=== PATIENT | female | born 1970 | race African-American/Black ===

== ENCOUNTER → 2024-02-13 | Emergency (ER) | payer OTHER ==
[~2024-02-13] MED LIST: FAMOTIDINE 20 MG/2 ML VIAL IV ONE; KETOROLAC 30 MG/ML INJ ONE; NA CHLORIDE 0.9% 1,000 ML ONE; ONDANSETRON 4 MG/2 ML VIAL ONE
[2024-02-13 13:01] LABS: Absolute Eosinophils 1.1 K/uL (0-0.5); Absolute Lymphocytes (CBC) 0.8 K/uL (0.7-4.9); Absolute Monocytes 0.4 K/uL (0.1-1.3); Absolute Neutrophil 6.3 K/uL (1.8-8.0); Basophils % 0.3 % (0-1.3); Eosinophils % 12.7 % (0-4.4); Hematocrit 44.7 % (36.0-45.0); Hemoglobin 15.1 g/dL (12.0-15.0); Lymphocytes % 8.9 % (15.3-44.8); MCH 31.2 pg (27.0-35.0); MCHC 33.8 g/dL (32.0-36.0); MCV 92.3 fL (80-100); MPV 7.8 fL (7.6-11.3); Monocytes % 4.8 % (3.3-12.3); Neutrophils % 73.3 % (41.7-73.7); Nucleated Red Blood Cells % 0.1 % (0-0); Platelets 332 thou/uL (152-406); RBC Red Blood Cell Count 4.85 M/uL (3.86-4.86); Red Cell Distribution Width 14.4 % (12.1-15.2)
[2024-02-13 13:25] LABS: Albumin 3.6 g/dL (3.4-5.0); Anion Gap 11.7 mEq/L (5.0-15.0); Bilirubin Direct 0.3 mg/dL (0-0.2); Bilirubin Indirect, Calculated 1.3 mg/dL (0.2-0.8); Bilirubin Total 1.6 mg/dL (0.2-1.0); Globulin 3.5 g/dL (2.3-3.5); Potassium 3.7 mEq/L (3.5-5.1); Protein, Total 7.1 g/dL (6.4-8.2); Troponin High Sensitivity 7.1 pg/mL (<58.9)
[2024-02-13 13:30] LABS: Specific Gravity > 1.030 (1.005-1.030); Urine Bacteria None Seen /HPF (<20); Urine Bilirubin NEGATIVE (Negative); Urine Blood Negative (Negative); Urine Clarity Extremely Turbid (Clear); Urine Color Orange (Yellow); Urine Culture Reflex Order NOT NEEDED; Urine Glucose TRACE (Negative); Urine Ketones NEGATIVE (Negative); Urine Microscopic Reflex YN ORDER UMIC; Urine Mucus 4+ /HPF (None Seen); Urine Nitrite NEGATIVE (Negative); Urine Protein 1+ (Negative); Urine RBC <5 /HPF (None Seen); Urine Urobilinogen Normal (Normal); Urine WBC None Seen /HPF (<5)
--- NOTE | 2024-02-13 14:31 | RAD REPORT ---
EXAM DESCRIPTION: CT - Chest For Pe Angio - 02/13/2024 1:42 pm CLINICAL HISTORY: chest pain, abdominal pain COMPARISON: Chest For Pe Angio dated 01/24/2024 TECHNIQUE: Thin axial CT images of the chest were obtained following administration of 100 mL Isovue 370 IV contrast. Multiplanar reconstructions, and maximum intensity projection reconstructions were generated and reviewed. Exam utilizes a protocol for optimal evaluation of pulmonary arterial tree. All CT scans are performed using dose optimization technique as appropriate and may include automated exposure control or mA/KV adjustment according to patient size. FINDINGS: Pulmonary arteries are normal. No emboli or other suspicious finding. No acute or signific ant aorta findings. Patchy dependent medial basilar airspace opacities including scattered areas of dependent ground-glas s and tree-in-bud opacities. Wall thickening and opacification of the bronchial branches leading to t hese regions, may relate to secretions or mucous plugging. Trace effusion/thickening along the right major fissure. No pleural thickening or pleural effusion. No pneumothorax. Diffuse wall thickening circumferentially along the mid to distal esophagus and the gastroesophageal junction, may relate to infectious/inflammatory esophagitis or reflux. Incidentally noted few thyroid nodules largest at the lower pole inferiorly measuring 1.5 cm. Mildly prominent mediastinal and hilar lymph nodes seen probably reactive/inflammatory. No chest wall mass or abnormal axilliary lymphadenopathy. IMPRESSION: No evidence of acute central pulmonary emboli. Patchy dependent medial bibasilar airspace opacities concerning for pneumonitis, with bronchial wall thickening and secretions/ mucoid impaction along the leading bronchitis. Other airspace opacities se en elsewhere in the central lungs on the prior exam have since resolved. Circumferential wall thickening of the mid to distal esophagus suggesting infectious/inflammatory eso phagitis or reflux. This is stable. Few bilateral thyroid nodules, consider additional evaluation by dedicated thyroid ultrasound if not previously performed.
--- NOTE | 2024-02-13 14:35 | RAD REPORT ---
EXAM DESCRIPTION: RADChest Single View02/13/2024 1:26 pm CLINICAL HISTORY: CHEST PAIN COMPARISON: Chest Single View dated 01/24/2024 TECHNIQUE: Portable AP view of the chest. FINDINGS: Partial improvement of bibasilar patchy airspace opacities. No pneumothorax or effusion. The cardiomediastinal contours are unremarkable. IMPRESSION: Partial improvement of bibasilar patchy airspace opacities, may reflect pneumonia.
--- NOTE | 2024-02-13 14:51 | RAD REPORT ---
EXAM DESCRIPTION: CT - Abdomen Pelvis W Contrast - 02/13/2024 1:43 pm CLINICAL HISTORY: nausea/ vomiting COMPARISON: Chest For Pe Angio dated 01/24/2024; Chest For Pe Angio dated 02/13/2024 TECHNIQUE: Thin cut axial CT imaging of the abdomen and pelvis was performed following intravenous a dministration of 100 mL Isovue 370. Multiplanar reformats were generated and reviewed. All CT scans are performed using dose optimization technique as appropriate and may include automated exposure control or mA/KV adjustment according to patient size. FINDINGS: Lungs were better evaluated on accompanying CT angiogram chest of the same day. The liver, spleen, adrenal glands, and pancreas show no suspicious findings. Gallbladder was surgical ly removed. Symmetric renal function is seen with no hydronephrosis or suspicious renal mass. No dilated bowel loops or bowel wall thickening. No free air, free fluid or inflammatory stranding. N o hernia, mass or bulky lymphadenopathy. The urinary bladder is without significant finding. Retroverted uterus with heterogeneously enhancing fibroids throughout the myometrium, sparing the lef t lateral wall. No suspicious bony findings. IMPRESSION: No acute intra-abdominal process. Retroverted fibroid uterus. Lungs were better evaluated on accompanying CT angiogram chest of the same day.
--- NOTE | 2024-02-13 15:53 | ER ---
Nurse's Notes [facility] Name: Dari Calvillo Age: 53 yrs Sex: Female : 1970 Arrival Date: 02/13/2024 Time: 12:17 Bed 3 Private MD: Diagnosis: Nausea with vomiting, unspecified;Chest pain, unspecified Presentation: 02/12 12:23 Chief complaint: Patient states: N/V and mid-sternal chest pain, n/v started this ph morning, states that she vomited blood. Coronavirus screen: Vaccine status: Patient reports receiving the 1st dose of the Covid vaccine. Ebola Screen: No symptoms or risks identified at this time. Initial Sepsis Screen: Does the patient meet any 2 criteria? No. Patient's initial sepsis screen is negative. Does the patient have a suspected source of infection? No. Patient's initial sepsis screen is negative. Risk Assessment: Do you want to hurt yourself or someone else? Patient reports no desire to harm self or others. Onset of symptoms was February 13, 2024. 12:23 Method Of Arrival: Ambulatory ph 12:23 Acuity: HILDA 2 ph Triage Assessment: 12:27 General: Appears in no apparent distress. Behavior is calm, cooperative. Pain: ph Complains of pain in chest. GI: Reports nausea, vomiting. 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 - Social history:: Smoking status: Patient denies any tobacco usage or history of. Screenin:15 [facility] ED Fall Risk Assessment (Adult) History of falling in the last 3 months, ko1 including since admission No falls in past 3 months (0 pts). [facility] ED Fall Risk Assessment (Adult) History of falling in the last 3 months, including since admission No falls in past 3 months (0 pts) Confusion or Disorientation No (0 pts) Intoxicated or Sedated No (0 pts) Impaired Gait No (0 pts) Mobility Assist Device Used No (0 pt) Altered Elimination No (0 pt) Score/Fall Risk Level 0 - 2 = Low Risk Oriented to surroundings, Maintained a safe environment, Educated pt \T\ family on fall prevention, incl call for assistance when getting out of bed, Assessed \T\ reinforced patient's understanding of fall precautions, Provided non-skid footwear, Hourly rounding (assess needs \T\ fall precautionary measures) done, Used ambulatory aids as needed (educated on \T\ assisted with), Used gait belt as appropriate. Abuse screen: Denies threats or abuse. Denies injuries from another. Nutritional screening: No deficits noted. Tuberculosis screening: No symptoms or risk factors identified. Assessment: 13:08 General: Appears uncomfortable, Behavior is calm, cooperative, appropriate for age. ll1 Pain: Complains of pain in LUQ, mid chest Pain currently is 9 out of 10 on a pain scale. Quality of pain is described as aching. Neuro: Reports weakness. GI: Abdomen is round Bowel sounds present X 4 quads. Abd is soft Abdomen is tender to palpation in left upper quadrant Reports upper abdominal pain, nausea, vomiting. 14:05 Reassessment: No changes from previously documented assessment. Patient and/or family ll1 updated on plan of care and expected duration. Pain level reassessed. Patient is alert, oriented x 3, equal unlabored respirations, skin warm/dry/pink. 14:48 Reassessment: No changes from previously documented assessment. Patient and/or family ll1 updated on plan of care and expected duration. Pain level reassessed. Patient is alert, oriented x 3, equal unlabored respirations, skin warm/dry/pink. Vital Signs: 12:23 BP 138 / 96; Pulse 123; Resp 18; Temp 97.2; Pulse Ox 95% on R/A; Weight 100.7 kg; ph Height 6 ft. 3 in. ; Pain 9/10; 13:07 Pulse 112; Resp 18; Pulse Ox 94% on R/A; ll1 14:20 Pulse 104; Resp 18; Pulse Ox 95% on R/A; ll1 14:49 BP 132 / 97; Pulse 99; Resp 18; Pulse Ox 94% on R/A; ll1 15:29 BP 148 / 89; Pulse 97; Resp 18; Pulse Ox 94% on R/A; ll1 16:06 BP 158 / 93; Pulse 96; Resp 18; Pulse Ox 100% on R/A; ll1 12:23 Body Mass Index 27.75 (100.70 kg, 190.5 cm) ph 12:23 Pain Scale: Adult ph ED Course: 12:19 Patient arrived in ED. rg4 12:19 Jeromy Nair DO is Attending Physician. ms3 12:27 Triage completed. ph 12:27 Arm band placed on Patient placed in waiting room, Patient notified of wait time. ph 12:31 EKG completed in triage. Results shown to MD. ph 12:50 D-Dimer Sent. bc6 12:50 LFT's Sent. bc6 12:50 Lipase Sent. bc6 12:50 Basic Metabolic Panel Sent. bc6 12:50 CBC with Diff Sent. bc6 12:50 Troponin HS Sent. bc6 12:51 Inserted saline lock: 22 gauge in left forearm, using aseptic technique. Blood bc6 collected. 12:51 Initial lab(s) drawn, by me, sent to lab. EKG done, by ED staff, reviewed by Jeromy Nair DO. 12:52 Warm blanket given. bc6 12:57 Jesus Ac, RN is Primary Nurse. ll1 13:15 Patient has correct armband on for positive identification. Bed in low position. Call ko1 light in reach. Side rails up X 1. Provided Education on: na. Client placed on continuous cardiac and pulse oximetry monitoring. NIBP monitoring applied. clinical research monitor on. 13:15 No provider procedures requiring assistance completed. ko1 13:28 XRAY Chest (1 view) In Process Unspecified. EDMS 13:44 CT Chest For PE Angio In Process Unspecified. EDMS 13:44 CT Abd/Pelvis - IV Contrast Only In Process Unspecified. EDMS 15:53 Jeb Cortes DO is Referral Physician. ms3 16:07 IV discontinued, intact, bleeding controlled, No redness/swelling at site. Pressure ll1 dressing applied. Administered Medications: 13:07 Drug: Famotidine IVP 20 mg IVP once; dilute with 10 mL 0.9% NaCl; give over 2 minutes ll1 Route: IVP; Site: left forearm; 14:45 Follow up: Response: No adverse reaction ll1 13:07 Drug: TORadol - Ketorolac IVP 15 mg IVP once Route: IVP; Site: left forearm; ll1 14:45 Follow up: Response: No adverse reaction; Pain is decreased ll1 13:07 Drug: Ondansetron IVP 4 mg IVP once; over 2 minutes Route: IVP; Site: left forearm; ll1 14:45 Follow up: Response: No adverse reaction ll1 14:48 Drug: NS 0.9% IV 1000 ml IV at 1000 ml once Route: IV; Rate: 1000 ml; Site: left ll1 forearm; 16:07 Follow up: Response: No adverse reaction; IV Status: Completed infusion; IV Intake: ll1 1000ml Medication: 15:58 VIS not applicable for this client. ko1 Intake: 16:07 IV: 1000ml; Total: 1000ml. ll1 Outcome: 15:53 Discharge ordered by MD. ms3 16:07 Discharged to home ambulatory, 1 16:07 Condition: stable 16:07 Discharge instructions given to patient, family, Instructed on discharge instructions, follow up and referral plans. Demonstrated understanding of instructions, follow-up care, 16:07 Patient left the ED. 1 Signatures: Dispatcher [employer] EDKaylynn Giordano, RN RN Mariama Ibrahim rg4 Jesus Ac RN RN ll1 Jeromy Nair DO DO ms3 Aminta Dee RN RN ko1 Domonique Escamilla bc6
--- NOTE | 2024-02-13 15:54 | EDPHYS ---
Physician Documentation [facility] Name: Dari Calvillo Age: 53 yrs Sex: Female : 1970 Arrival Date: 02/13/2024 Time: 12:17 Bed 3 Private MD: ED Physician Jeromy Nair HPI: 02/12 13:12 This 53 yrs old Black Female presents to ER via Ambulatory with complaints of Vomiting. ms3 13:12 53-year-old female with past medical history of congestive heart failure, COPD, ms3 diabetes, hypertension, SVT presents to the emergency department for nausea, vomiting, chest pain. Patient notes she vomited 9 times today. Patient states her symptoms began at 7 AM. The pain is rated a 9/10 without any alleviating or inciting factors.. 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 - Social history:: Smoking status: Patient denies any tobacco usage or history of. ROS: 13:12 Constitutional: Negative for fever, and chills. Neck: Negative for injury, pain, and ms3 swelling, 13:12 Respiratory: Negative for shortness of breath, cough, wheezing, and pleuritic chest pain, 13:12 MS/Extremity: Negative for injury and deformity, Skin: Negative for injury, rash, and discoloration, 13:12 Cardiovascular: Positive for chest pain, 13:12 Abdomen/GI: Positive for nausea and vomiting, 13:12 All other systems are negative, Exam: 13:12 Constitutional: This is a well developed, well nourished patient who is awake, alert, ms3 and in no acute distress. Head/Face: Normocephalic, atraumatic. Neck: Trachea midline, no cervical lymphadenopathy. Supple, full range of motion without nuchal rigidity, or vertebral point tenderness. No Meningismus. Chest/axilla: Normal chest wall appearance and motion. Nontender with no deformity. Respiratory: Lungs have equal breath sounds bilaterally, clear to auscultation and percussion. No rales, rhonchi or wheezes noted. No increased work of breathing, no retractions or nasal flaring. Abdomen/GI: Soft, non-tender, with normal bowel sounds. No distension or tympany. No guarding or rebound. No evidence of tenderness throughout. 13:12 Cardiovascular: Rate: tachycardic, Rhythm: regular, Pulses: no pulse deficits are appreciated, Heart sounds: normal, normal S1and S2, 13:12 ECG was reviewed by the Attending Physician. Vital Signs: 12:23 BP 138 / 96; Pulse 123; Resp 18; Temp 97.2; Pulse Ox 95% on R/A; Weight 100.7 kg; ph Height 6 ft. 3 in. ; Pain 9/10; 13:07 Pulse 112; Resp 18; Pulse Ox 94% on R/A; ll1 14:20 Pulse 104; Resp 18; Pulse Ox 95% on R/A; ll1 14:49 BP 132 / 97; Pulse 99; Resp 18; Pulse Ox 94% on R/A; ll1 15:29 BP 148 / 89; Pulse 97; Resp 18; Pulse Ox 94% on R/A; ll1 16:06 BP 158 / 93; Pulse 96; Resp 18; Pulse Ox 100% on R/A; ll1 12:23 Body Mass Index 27.75 (100.70 kg, 190.5 cm) ph 12:23 Pain Scale: Adult ph MDM: 12:34 Patient medically screened. ms3 13:12 Differential diagnosis: Nonspecific abd pain, cholecystitis, appendicitis. ms3 15:53 Data reviewed: vital signs, nurses notes, lab test result(s), radiologic studies, and ms3 as a result, I will discharge patient. I considered the following discharge prescriptions or medication management in the emergency department Medications were administered in the Emergency Department. See MAR. Care significantly affected by the following chronic conditions: Diabetes, Hypertension, Congestive Heart Failure, Chronic Obstructive Pulmonary Disease. Counseling: I had a detailed discussion with the patient and/or guardian regarding the historical points, exam findings, and any diagnostic results supporting the discharge/admit diagnosis, lab results, radiology results, the need for outpatient follow up, to return to the emergency department if symptoms worsen or persist or if there are any questions or concerns that arise at home. Response to treatment: the patient's symptoms have markedly improved after treatment, and as a result, I will discharge patient. Special discussion: I discussed with the patient the need to follow-up with the PCP/specialist for the noted incidental finding on X-ray/CT scanning. ED course: Discussed CT findings to include thyroid nodules and esophageal thickening with the patient. Discussed with patient necessity to follow-up with primary care physician in 2 to 3 days. Patient understands and agrees with plan. All questions were answered. Return precautions discussed include worsening symptoms, or any other concerns. On reevaluation patient is alert and oriented x 4, no apparent distress, nontoxic-appearing, speaking full sentences. 02/12 12:28 Order name: Basic Metabolic Panel; Complete Time: 13:25 ms3 02/12 12:28 Order name: CBC with Diff; Complete Time: 13:25 ms3 02/12 12:28 Order name: Troponin HS; Complete Time: 13:25 ms3 02/12 12:29 Order name: Lipase; Complete Time: 13:25 ms3 02/12 12:29 Order name: Urinalysis w/ reflexes; Complete Time: 14:35 ms3 02/12 12:29 Order name: LFT's; Complete Time: 13:25 ms3 02/12 12:34 Order name: D-Dimer; Complete Time: 13:25 ms3 02/12 12:28 Order name: XRAY Chest (1 view); Complete Time: 14:53 ms3 02/12 13:26 Order name: CT Chest For PE Angio; Complete Time: 14:35 ms3 02/12 13:26 Order name: CT Abd/Pelvis - IV Contrast Only; Complete Time: 14:53 ms3 02/12 12:28 Order name: EKG; Complete Time: 12:29 ms3 02/12 12:28 Order name: Cardiac monitoring; Complete Time: 13:07 ms3 02/12 12:28 Order name: EKG - Nurse/Tech; Complete Time: 12:43 ms3 02/12 12:28 Order name: IV Saline Lock; Complete Time: 12:50 ms3 02/12 12:28 Order name: Labs collected and sent; Complete Time: 12:50 ms3 02/12 12:28 Order name: O2 Per Protocol; Complete Time: 12:57 ms3 02/12 12:28 Order name: O2 Sat Monitoring; Complete Time: 12:57 ms3 EC:12 Rate is 130 beats/min. Rhythm is regular. QRS [place] is Normal. ME interval is normal. ms3 QRS interval is normal. Clinical impression: Sinus tachycardia. Interpreted by me. Reviewed by me. Administered Medications: 13:07 Drug: Famotidine IVP 20 mg IVP once; dilute with 10 mL 0.9% NaCl; give over 2 minutes ll1 Route: IVP; Site: left forearm; 14:45 Follow up: Response: No adverse reaction ll1 13:07 Drug: TORadol - Ketorolac IVP 15 mg IVP once Route: IVP; Site: left forearm; ll1 14:45 Follow up: Response: No adverse reaction; Pain is decreased ll1 13:07 Drug: Ondansetron IVP 4 mg IVP once; over 2 minutes Route: IVP; Site: left forearm; ll1 14:45 Follow up: Response: No adverse reaction ll1 14:48 Drug: NS 0.9% IV 1000 ml IV at 1000 ml once Route: IV; Rate: 1000 ml; Site: left ll1 forearm; 16:07 Follow up: Response: No adverse reaction; IV Status: Completed infusion; IV Intake: ll1 1000ml Disposition Summary: 02/13/24 15:53 Discharge Ordered Notes: Location: Home ms3 Condition: Stable ms3 Diagnosis - Nausea with vomiting, unspecified ms3 - Chest pain, unspecified ms3 Followup: ms3 - With: Jeb Cortes DO - When: 2 - 3 days - Reason: Recheck today's complaints Discharge Instructions: - Discharge Summary Sheet ms3 - Nonspecific Chest Pain, Adult ms3 - Nausea and Vomiting, Adult ms3 Forms: - Medication Reconciliation Form ms3 - Thank You Letter ms3 - Antibiotic Education ms3 - Prescription Opioid Use ms3 - Patient Portal Instructions ms3 - Leadership Thank You Letter ms3 Signatures: Dispatcher [employer] Kaylynn Guthrie RN RN ph Lewis, Lynsay, RN RN 1 Jeromy Nair DO DO ms3
[2024-02-13 17:00] VITALS: BP 158/93; TEMP 97.2; O2SAT 100
--- NOTE | 2024-02-14 14:10 | EKG ---
Test Date: 2024-02-13 Test Time: 12:26:38 Ict Analyst: CRISTAL MEASUREMENT RESULTS: Intervals: Rate: 130 DE: 150 QRSD: 86 QT: 306 QTc: 450 [place]: P: 85 DE: 150 QRS: 114 T: 85 INTERPRETIVE STATEMENTS: Sinus tachycardia with fusion complexes Right atrial enlargement Indeterminate axis Pulmonary disease pattern Abnormal ECG Compared to ECG 01/27/2024 04:35:12 Fusion complex(es) now present Indeterminate axis now present Sinus rhythm no longer present Right-axis deviation no longer present Prolonged QT interval no longer present Electronically Signed On 02-14-24 14:05:57 CDT by Cristi Leiva
== END ==
LOC: ER 12:17
DX: R11.2 Nausea with vomiting, unspecified (principal); R07.9 Chest pain, unspecified; I10 Essential (primary) hypertension; I50.9 Heart failure, unspecified; J44.9 Chronic obstructive pulmonary disease, unspecified
CPT/HCPCS: 96361; 93005; 85025; 81001; 80048; 36415; 85379; 80076; 84484; 83690; 71275; 74177; 71045; 96375; 96374; 99285; Q9967; J2405; J7030

== ENCOUNTER 2024-02-24 12:40 | Inpatient (IN) | payer OTHER ==
[2024-02-24] MEDS ORDERED: ASPIRIN 81 MG CHEWABLE TABLET ONE (13:04)
[2024-02-24 13:17] LABS: Absolute Eosinophils 1.8 K/uL (0-0.5); Absolute Lymphocytes (CBC) 0.8 K/uL (0.7-4.9); Absolute Monocytes 0.5 K/uL (0.1-1.3); Absolute Neutrophil 6.4 K/uL (1.8-8.0); Basophils % 0.4 % (0-1.3); Eosinophils % 18.9 % (0-4.4); Hemoglobin 14.7 g/dL (12.0-15.0); Lymphocytes % 8.1 % (15.3-44.8); MCHC 34.1 g/dL (32.0-36.0); MCV 90.9 fL (80-100); MPV 8.3 fL (7.6-11.3); Monocytes % 5.5 % (3.3-12.3); Neutrophils % 67.1 % (41.7-73.7); Platelets 338 thou/uL (152-406); RBC Red Blood Cell Count 4.73 M/uL (3.86-4.86); Red Cell Distribution Width 14.5 % (12.1-15.2)
[2024-02-24] MEDS ORDERED: NA CHLORIDE 0.9% 500 ML ONE (13:23)
[2024-02-24 13:32] LABS: Albumin 3.5 g/dL (3.4-5.0); Anion Gap 9.6 mEq/L (5.0-15.0); Bilirubin Direct 0.3 mg/dL (0-0.2); Bilirubin Indirect, Calculated 1.1 mg/dL (0.2-0.8); Bilirubin Total 1.4 mg/dL (0.2-1.0); Globulin 3.6 g/dL (2.3-3.5); Potassium 3.6 mEq/L (3.5-5.1); Protein, Total 7.1 g/dL (6.4-8.2); Troponin High Sensitivity 10.3 pg/mL (<58.9)
--- NOTE | 2024-02-24 13:46 | RAD REPORT ---
EXAM DESCRIPTION: RAD - Chest Single View - 02/24/2024 1:25 pm CLINICAL HISTORY: CHEST PAIN Chest pain. COMPARISON: Chest Single View dated 02/13/2024; Chest Single View dated 01/24/2024 FINDINGS: Portable technique limits examination quality. Patchy opacity is present in both lung bases, greater on the right, likely indicating pneumonia. The heart is upper limit normal in size. No displaced fractures.
[2024-02-24 14:08] LABS: Blood Morphology Comment NOT SEEN (NOT SEEN); Platelet Estimate ADEQ; White Blood Cell Scan OK (OK)
--- NOTE | 2024-02-24 14:25 | EDPHYS ---
Physician Documentation [facility] Name: Dari Calvillo Age: 53 yrs Sex: Female : 1970 Arrival Date: 02/24/2024 Time: 12:40 Bed 18 Private MD: ED Physician Jeromy Nair HPI: 02/23 13:20 This 53 yrs old Black Female presents to ER via Ambulatory with complaints of Chest ms3 Pain, Vomiting, Breathing Difficulty. 13:20 53-year-old female with past medical history of congestive heart failure, COPD, ms3 diabetes, hypertension, SVT presents to the emergency department for chest pain, shortness of breath, vomiting that is been ongoing for 5 days. Patient states her symptoms became worse this morning. Patient's discomfort is rated an 8/10. Patient denies any alleviating or inciting factors. Historical: - Allergies: 14:32 NSAIDS; kc6 - PMHx: 12:57 Congestive heart failure; COPD; diabetes mellitus; Hypertensive disorder; SVT; ap3 - PSHx: 12:57 Right hip; ap3 - Immunization history:: Client reports receiving the 2nd dose of the Covid vaccine, Flu vaccine is not up to date. - Social history:: Smoking status: Patient reports the use of cigarette tobacco products, smokes one pack cigarettes per day. ROS: 13:20 Constitutional: Negative for fever, and chills. Neck: Negative for injury, pain, and ms3 swelling, 13:20 Skin: Negative for injury, rash, and discoloration, 13:20 Cardiovascular: Positive for chest pain, 13:20 Respiratory: Positive for shortness of breath, 13:20 Abdomen/GI: Positive for nausea and vomiting, Exam: 13:20 Constitutional: This is a well developed, well nourished patient who is awake, alert, ms3 and in no acute distress. Head/Face: Normocephalic, atraumatic. 13:20 Skin: Warm, dry with normal turgor. Normal color with no rashes, no lesions, and no evidence of cellulitis. 13:20 Cardiovascular: Rate: tachycardic, Rhythm: regular, Pulses: no pulse deficits are appreciated, Heart sounds: normal, normal S1and S2, 13:40 ECG was reviewed by the Attending Physician. ms3 Vital Signs: 12:55 BP 134 / 97; Pulse 126; Resp 18; Temp 98.8; Pulse Ox 92% on R/A; Weight 99.79 kg; ap3 Height 6 ft. 3 in. ; Pain 8/10; 13:08 BP 149 / 100; Pulse 122; Resp 19 S; Pulse Ox 92% on R/A; kc6 14:48 BP 148 / 98; Pulse 127; Resp 20 S; Pulse Ox 98% on Non-rebreather mask; kc6 15:16 BP 138 / 89; Pulse 126; Resp 25 S; Pulse Ox 97% on Non-rebreather mask; kc6 16:25 BP 138 / 88; Pulse 119; Resp 18 S; Pulse Ox 91% on 15 lpm Venturi mask; kc6 12:55 Body Mass Index 27.50 (99.79 kg, 190.5 cm) ap3 12:55 Pain Scale: Adult ap3 MDM: 12:53 Patient medically screened. ms3 13:20 Differential diagnosis: abnormal EKG, acute myocardial infarction, coronary artery ms3 disease congestive heart failure. The patient was given aspirin in the Emergency Department. 14:09 ED course: Patient with Pneumonia on cxr identified at this time.. ms3 15:34 Data reviewed: vital signs, nurses notes, lab test result(s), EKG, radiologic studies, ms3 and as a result, I will admit patient. Consideration of Admission/Observation Patient was admitted/placed on observation. Management of patient was discussed with the following: Hospitalist: Dr. Baer. I considered the following discharge prescriptions or medication management in the emergency department Medications were administered in the Emergency Department. See MAR. Independent interpretation of the following test(s) in the Emergency Department EKG: See my EKG interpretation above X-Ray: My interpretation is Chest x-ray images reviewed by me reveal possible infiltrate right lower lung. Care significantly affected by the following chronic conditions: Diabetes, Hypertension, Chronic Obstructive Pulmonary Disease. Counseling: I had a detailed discussion with the patient and/or guardian regarding the historical points, exam findings, and any diagnostic results supporting the discharge/admit diagnosis, lab results, radiology results, the need for further work-up and treatment in the hospital. ED course: Discussed necessity for admission with patient and she understands agrees with plan. All questions were answered. Patient remained in stable condition in the emergency department. 02/23 12:55 Order name: Basic Metabolic Panel; Complete Time: 14:18 ms3 02/23 12:55 Order name: CBC with Diff; Complete Time: 14:18 ms3 02/23 12:55 Order name: LFT's; Complete Time: 14:18 ms3 02/23 12:55 Order name: Magnesium; Complete Time: 14:18 ms3 02/23 12:55 Order name: NT PRO-BNP; Complete Time: 14:18 ms3 02/23 12:55 Order name: Troponin HS; Complete Time: 14:18 ms3 02/23 13:31 Order name: CBC Smear Scan; Complete Time: 14:18 EDMS 02/23 14:09 Order name: Blood Culture Adult (2) ms3 02/23 14:09 Order name: Lactate w/ 2H reflex if indic.; Complete Time: 14:58 ms3 02/23 14:09 Order name: Protime (+inr); Complete Time: 14:58 ms3 02/23 14:09 Order name: Ptt, Activated; Complete Time: 14:58 ms3 02/23 12:55 Order name: XRAY Chest (1 view); Complete Time: 14:18 ms3 02/23 12:55 Order name: EKG; Complete Time: 12:56 ms3 02/23 12:55 Order name: Cardiac monitoring; Complete Time: 12:57 ms3 02/23 12:55 Order name: EKG - Nurse/Tech; Complete Time: 12:57 ms3 02/23 12:55 Order name: IV Saline Lock; Complete Time: 13:06 ms3 02/23 12:55 Order name: Labs collected and sent; Complete Time: 13:06 ms3 02/23 12:55 Order name: O2 Per Protocol; Complete Time: 12:57 ms3 02/23 12:55 Order name: O2 Sat Monitoring; Complete Time: 12:57 ms3 02/23 14:09 Order name: Accucheck; Complete Time: 14:13 ms3 02/23 14:09 Order name: IV Saline Lock - Large Bore; Complete Time: 14:13 ms3 02/23 14:09 Order name: Vital Signs; Complete Time: 14:13 ms3 EC:40 Rate is 126 beats/min. Rhythm is regular. QRS [place] is Normal. IA interval is normal. ms3 QRS interval is normal. Clinical impression: Sinus tachycardia. Interpreted by me. Reviewed by me. Administered Medications: 13:06 Drug: Aspirin PO Chewable Tablet 324 mg PO once; 81 mg tablets x 4 Route: PO; kc6 14:32 Follow up: Response: No adverse reaction [facility] 13:26 Drug: NS 0.9% IV 500 ml IV at bolus once Route: IV; Rate: bolus; Site: right kc6 antecubital; 14:32 Follow up: Response: No adverse reaction; IV Status: Completed infusion; IV Intake: kc6 500ml 14:48 Drug: Rocephin - Rocephin (cefTRIAXone) IVPB 1 grams IVPB once over 30 mins; (mix in 50 kc6 mL NS) Route: IVPB; Infused Over: 30 mins; Site: right antecubital; 15:17 Follow up: Response: No adverse reaction; IV Status: Completed infusion; IV Intake: [id number] 14:48 Drug: AZITHromycin IVPB 500 mg IVPB once over 1 hrs; (mix in 250 mL NS) Route: IVPB; kc6 Infused Over: 1 hrs; Site: right antecubital; 16:21 Follow up: Response: No adverse reaction; IV Status: Completed infusion; IV Intake: kc6 250ml 14:48 Drug: morphine IVP or IV 4 mg IVP once over 4 mins Route: IVP; Infused Over: 4 mins; kc6 Site: right antecubital; 16:21 Follow up: Response: No adverse reaction; Pain is decreased; RASS: Alert and Calm (0) [facility] 14:48 Drug: Ondansetron IVP 4 mg IVP once; over 2 minutes Route: IVP; Site: right antecubital;6 16:21 Follow up: Response: No adverse reaction; Nausea is decreased [facility] 15:58 Drug: NS 0.9% IV 1000 ml IV at 1000 ml once Route: IV; Rate: 1000 ml; Site: right kc6 antecubital; 16:43 Follow up: Response: No adverse reaction; IV Status: Completed infusion; IV Intake: kc6 1000ml 15:58 Drug: Ativan IVP 0.5 mg IVP once Route: IVP; Site: right antecubital; 6 16:21 Follow up: Response: No adverse reaction; Anxiety decreased; RASS: Alert and Calm (0) kc6 15:58 Drug: Famotidine IVP 20 mg IVP once; dilute with 10 mL 0.9% NaCl; give over 2 minutes kc6 Route: IVP; Site: right antecubital; 16:22 Follow up: Response: No adverse reaction kc6 Disposition Summary: 02/24/24 14:24 Hospitalization Ordered Notes: Hospitalization Status: Inpatient Admission ms3 Provider: Jass Baer ms3 Location: Telemetry/MedSurg (Inpatient) ms3 Condition: Stable ms3 Problem: new ms3 Symptoms: are unchanged ms3 Bed/Room Type: Standard ms3 Room Assignment: 405(02/24/24 15:31) eb Diagnosis - Other pneumonia, unspecified organism ms3 - Chest pain, unspecified ms3 - Nausea with vomiting, unspecified ms3 - Acute respiratory failure with hypoxia ms3 - Essential (primary) hypertension ms3 Forms: - Medication Reconciliation Form ms3 - SBAR form ms3 - Leadership Thank You Letter ms3 Signatures: Dispatcher [employer] EDMS Brock Leroy, JIMENA-C TOOLS ADMINISTRATOR-Cla1 Tiffany Dawson, RN RN ap3 Brenda Bruce Marcus, DO DO ms3 Viviana Chavez, RN RN kc6 Corrections: (The following items were deleted from the chart) 14:32 12:57 Allergies: No Known Allergies; ap3 kc6 15:31 14:24 ms3 eb
--- NOTE | 2024-02-24 14:25 | ER ---
Nurse's Notes [facility] Name: Dari Calvillo Age: 53 yrs Sex: Female : 1970 Arrival Date: 02/24/2024 Time: 12:40 Bed 18 Private MD: Diagnosis: Other pneumonia, unspecified organism;Chest pain, unspecified;Nausea with vomiting, unspecified;Acute respiratory failure with hypoxia;Essential (primary) hypertension Presentation: 02/23 12:55 Chief complaint: Patient states: she has been having vomiting, chest pain and shortness ap3 of breath for approx 5 days. Coronavirus screen: Client presents with at least one sign or symptom that may indicate coronavirus-19. Ebola Screen: No symptoms or risks identified at this time. Initial Sepsis Screen: Does the patient meet any 2 criteria? HR > 90 bpm. Does the patient have a suspected source of infection? No. Patient's initial sepsis screen is negative. Risk Assessment: Do you want to hurt yourself or someone else? Patient reports no desire to harm self or others. Onset of symptoms was February 19, 2024. 12:55 Method Of Arrival: Ambulatory ap3 12:55 Acuity: HILDA 3 ap3 Triage Assessment: 12:57 General: Appears in no apparent distress. Behavior is calm, cooperative, appropriate ap3 for age. Pain: Complains of pain in chest Pain currently is 8 out of 10 on a pain scale. Neuro: Level of Consciousness is awake, alert, obeys commands, Oriented to person, place, time, situation. Cardiovascular: Reports chest pain, Patient's skin is warm and dry. Respiratory: Reports shortness of breath Airway is patent Respiratory effort is even, unlabored, Respiratory pattern is regular, symmetrical. GI: Reports nausea, vomiting. Historical: - Allergies: 14:32 NSAIDS; kc6 - PMHx: 12:57 Congestive heart failure; COPD; diabetes mellitus; Hypertensive disorder; SVT; ap3 - PSHx: 12:57 Right hip; ap3 - Immunization history:: Client reports receiving the 2nd dose of the Covid vaccine, Flu vaccine is not up to date. - Social history:: Smoking status: Patient reports the use of cigarette tobacco products, smokes one pack cigarettes per day. Screenin:48 [facility] ED Fall Risk Assessment (Adult) History of falling in the last 3 months, kc6 including since admission No falls in past 3 months (0 pts) Confusion or Disorientation No (0 pts) Intoxicated or Sedated No (0 pts) Impaired Gait No (0 pts) Mobility Assist Device Used No (0 pt) Altered Elimination No (0 pt) Score/Fall Risk Level 0 - 2 = Low Risk. Abuse screen: Denies threats or abuse. Denies injuries from another. Nutritional screening: No deficits noted. Tuberculosis screening: No symptoms or risk factors identified. Assessment: 13:06 General: Appears in no apparent distress. comfortable, well groomed, well developed, kc6 Behavior is calm, cooperative, appropriate for age. Pain: Complains of pain in chest Pain does not radiate. Pain began 2-3 days ago. Neuro: Level of Consciousness is awake, alert, obeys commands, Oriented to person, place, time, situation, Appropriate for age. Cardiovascular: Reports chest pain, Heart tones S1 S2 present Capillary refill < 3 seconds Rhythm is sinus tachycardia. Respiratory: Reports shortness of breath on exertion cough that is productive, Airway is patent Trachea midline Respiratory effort is even, labored, Respiratory pattern is symmetrical, tachypnea. GI: Reports nausea, vomiting, Patient currently denies abdominal pain, diarrhea. : No signs and/or symptoms were reported regarding the genitourinary system. EENT: No signs and/or symptoms were reported regarding the EENT system. Derm: No signs and/or symptoms reported regarding the dermatologic system. Skin is intact, is healthy with good turgor, Skin is pink, warm \\T\\ dry. Musculoskeletal: No signs and/or symptoms reported regarding the musculoskeletal system. Circulation, motion, and sensation intact. Capillary refill < 3 seconds, Range of motion: intact in all extremities. 14:06 Reassessment: Patient appears in no apparent distress at this time. No changes from kc6 previously documented assessment. Patient and/or family updated on plan of care and expected duration. Pain level reassessed. Patient is alert, oriented x 3, equal unlabored respirations, skin warm/dry/pink. 14:09 Reassessment: pt states, "I feel like I can't breath." pt appears to be 88% on RA, HR kc6 increased to 130's. pt placed on NRB mask, unable to tolerate NC due to nasal polyps. Dr. Nair notified, code sepsis called. 15:06 Reassessment: Patient appears in no apparent distress at this time. No changes from kc6 previously documented assessment. Patient and/or family updated on plan of care and expected duration. Pain level reassessed. Patient is alert, oriented x 3, equal unlabored respirations, skin warm/dry/pink. 16:25 Reassessment: Patient appears in no apparent distress at this time. No changes from kc6 previously documented assessment. Patient and/or family updated on plan of care and expected duration. Pain level reassessed. Patient is alert, oriented x 3, equal unlabored respirations, skin warm/dry/pink. 16:41 Reassessment: brief nurse to nurse report give to JEFFREY Painting over the phone. kc6 Vital Signs: 12:55 BP 134 / 97; Pulse 126; Resp 18; Temp 98.8; Pulse Ox 92% on R/A; Weight 99.79 kg; ap3 Height 6 ft. 3 in. ; Pain 8/10; 13:08 BP 149 / 100; Pulse 122; Resp 19 S; Pulse Ox 92% on R/A; kc6 14:48 BP 148 / 98; Pulse 127; Resp 20 S; Pulse Ox 98% on Non-rebreather mask; kc6 15:16 BP 138 / 89; Pulse 126; Resp 25 S; Pulse Ox 97% on Non-rebreather mask; kc6 16:25 BP 138 / 88; Pulse 119; Resp 18 S; Pulse Ox 91% on 15 lpm Venturi mask; kc6 12:55 Body Mass Index 27.50 (99.79 kg, 190.5 cm) ap3 12:55 Pain Scale: Adult ap3 ED Course: 12:42 Patient arrived in ED. ra3 12:47 Jeromy Nair DO is Attending Physician. ms3 12:47 Viviana Chavez RN is Primary Nurse. kc6 12:49 Patient has correct armband on for positive identification. Bed in low position. Call kc6 light in reach. Side rails up X 1. Client placed on continuous cardiac and pulse oximetry monitoring. NIBP monitoring applied. monitoring manager on. 12:56 Triage completed. ap3 13:06 Inserted saline lock: 18 gauge in right antecubital area, using aseptic technique. kc6 Blood collected. Oxygen administration via nasal cannula \\T\\ 2L/min. 13:08 Arm band placed on. kc6 13:27 XRAY Chest (1 view) In Process Unspecified. EDMS 14:24 Jass Baer MD is Hospitalizing Provider. ms3 16:42 No provider procedures requiring assistance completed. Patient admitted, IV remains in kc6 place. Administered Medications: 13:06 Drug: Aspirin PO Chewable Tablet 324 mg PO once; 81 mg tablets x 4 Route: PO; kc6 14:32 Follow up: Response: No adverse reaction [facility] 13:26 Drug: NS 0.9% IV 500 ml IV at bolus once Route: IV; Rate: bolus; Site: right kc6 antecubital; 14:32 Follow up: Response: No adverse reaction; IV Status: Completed infusion; IV Intake: kc6 500ml 14:48 Drug: Rocephin - Rocephin (cefTRIAXone) IVPB 1 grams IVPB once over 30 mins; (mix in 50 kc6 mL NS) Route: IVPB; Infused Over: 30 mins; Site: right antecubital; 15:17 Follow up: Response: No adverse reaction; IV Status: Completed infusion; IV Intake: [id number] 14:48 Drug: AZITHromycin IVPB 500 mg IVPB once over 1 hrs; (mix in 250 mL NS) Route: IVPB; kc6 Infused Over: 1 hrs; Site: right antecubital; 16:21 Follow up: Response: No adverse reaction; IV Status: Completed infusion; IV Intake: kc6 250ml 14:48 Drug: morphine IVP or IV 4 mg IVP once over 4 mins Route: IVP; Infused Over: 4 mins; kc6 Site: right antecubital; 16:21 Follow up: Response: No adverse reaction; Pain is decreased; RASS: Alert and Calm (0) kc 14:48 Drug: Ondansetron IVP 4 mg IVP once; over 2 minutes Route: IVP; Site: right antecubital;kc6 16:21 Follow up: Response: No adverse reaction; Nausea is decreased 6 15:58 Drug: NS 0.9% IV 1000 ml IV at 1000 ml once Route: IV; Rate: 1000 ml; Site: right kc6 antecubital; 16:43 Follow up: Response: No adverse reaction; IV Status: Completed infusion; IV Intake: kc6 1000ml 15:58 Drug: Ativan IVP 0.5 mg IVP once Route: IVP; Site: right antecubital; kc6 16:21 Follow up: Response: No adverse reaction; Anxiety decreased; RASS: Alert and Calm (0) kc6 15:58 Drug: Famotidine IVP 20 mg IVP once; dilute with 10 mL 0.9% NaCl; give over 2 minutes kc6 Route: IVP; Site: right antecubital; 16:22 Follow up: Response: No adverse reaction kc6 Medication: 16:43 VIS not applicable for this client. kc6 Intake: 14:32 IV: 500ml; Total: 500ml. kc6 15:17 IV: 10ml; Total: 510ml. kc6 16:21 IV: 250ml; Total: 760ml. kc6 16:43 IV: 1000ml; Total: 1760ml. kc6 Outcome: 14:24 Decision to Hospitalize by Provider. ms3 16:43 Admitted to Med/surg accompanied by tech, via stretcher, room 405, with oxygen, with kc6 chart, Report called to JEFFREY Painting 16:43 Condition: stable 16:43 Instructed on the need for admit, 16:51 Patient left the ED. kc6 Signatures: Dispatcher [employer] EDMS Tiffany Dawson, RN RN ap3 Jeromy Nair DO DO ms3 Viviana Chavez RN RN kc6 Rebecca Bishop ra3 Corrections: (The following items were deleted from the chart) 14:32 12:57 Allergies: No Known Allergies; ap3 kc6 15:15 14:48 BP 148 / 98; Pulse 17bpm; Resp 20bpm; Spontaneous; Pulse Ox 98% Non-rebreather kc6 mask; kc6
[2024-02-24] MEDS ORDERED: MORPHINE 4 MG/ML SYR ONE (14:37)
[2024-02-24] MEDS ORDERED: CEFTRIAXONE 1000 MG/VIAL ONE (14:37)
[2024-02-24] MEDS ORDERED: ONDANSETRON 4 MG/2 ML VIAL ONE (14:37)
[2024-02-24] MEDS ORDERED: AZITHROMYCIN 500 MG INJ IVPB ONE (14:37)
[2024-02-24] MEDS ORDERED: NA CHLORIDE 0.9% 250 ML ONE (14:38)
[2024-02-24 14:47] LABS: PT Prothrombin Time 13.7 SECONDS (9.5-12.5); PTT, Activated Partial Thromb 32.4 SECONDS (24.3-36.9); Protime INR 1.25
[2024-02-24] MEDS ORDERED: FAMOTIDINE 20 MG/2 ML VIAL IV ONE (15:49)
[2024-02-24] MEDS ORDERED: NA CHLORIDE 0.9% 1,000 ML ONE (15:49)
[2024-02-24] MEDS ORDERED: LORazepam 2 MG/ML VIAL ONE (15:49)
--- NOTE | 2024-02-24 16:09 | P.HP ---
Certification for Inpatient Patient admitted to: Inpatient With expected LOS: >2 Midnights Patient will require the following post-hospital care: None Practitioner: I am a practitioner with admitting privileges, knowledge of patient current condition, hospital course, and medical plan of care. Services: Services provided to patient in accordance with Admission requirements found in Title 42 Section 412.3 of the Code of Federal Regulations Patient History Date of Service: 02/24/24 History of Present Illness: 53-year-old female with history of CHF, COPD, diabetes mellitus type 2insulin- dependent, hypertension, hyperlipidemia, GERD, gastroparesis presents emergency department chief complaint of vomiting, chest pain, shortness of breath. She reports that for the last 4 days she has been vomiting constantly, she has had many episodes like this in the past reportedly at least 20 with very similar symptoms. She believes in the past she has been told it was gastroparesis. She did have a recent hospitalization here for elevated troponin, at that time she had a heart catheterization without need for intervention as well as an echocardiogram with a normal ejection fraction. She was previously on Entresto but reports she was told to stop it although she is unsure how long ago that was. Previous CT scans showed mild to moderate bilateral reticular lung opacities, mild bilateral groundglass opacities which may be infectious or inflammatory. Chest x-ray performed today showed patchy opacities present in both lung bases greater in the right likely indicating pneumonia. Room air sats are in the high 80s. Previous CT scans also identified distal esophageal thickening, patient reports she had a EGD and colonoscopy a few months ago and was told she had gastritis and something with her esophagus although she could not be clear about what was seen. ED provider wishes to admit patient for further evaluation and management of pneumonia, hypoxia, intractable vomiting. Allergies No Known Allergies Allergy (Unverified 01/24/24 10:10) Home Medications: Amlodipine [Norvasc*] 5 mg PO DAILY 01/26/24 Atorvastatin Calcium [Lipitor] 40 mg PO BEDTIME 01/26/24 Insulin 70/30 NPH/Reg Human [Novolin 70/30*] 30 unit SQ BIDWM 01/26/24 Metformin HCl 1,000 mg PO BIDWM 01/26/24 Pantoprazole [Protonix Tab*] 40 mg PO DAILY 01/26/24 Alprazolam [Xanax] 0.25 mg PO Q12HP PRN #30 tab 01/27/24 Aspirin [Aspirin EC 81 MG] 81 mg PO DAILY #30 tab 01/27/24 Atorvastatin Calcium [Lipitor] 40 mg PO BEDTIME #30 tab 01/27/24 Budesonide [Pulmicort*] 1 amp IH BID #60 amp 01/27/24 Escitalopram Oxalate [Lexapro] 10 mg PO DAILY #30 tab 01/27/24 Fluticasone [Flonase 50MCG Nasal [place]*] 2 sprays CARRILLO DAILY #1 bottle 01/27/24 Ipratropium/Albuterol Sulfate [Iprat-Albut 0.5-3(2.5) mg/3 ml] 3 ml IH Q6HP PRN #120 amp 01/27/24 Metoclopramide HCl [Reglan] 10 mg PO QIDP PRN #60 tab 01/27/24 Metoprolol Tartrate 75 mg PO BID #60 tab 01/27/24 - Past Medical/Surgical History Diabetic: Yes -: HTN -: CHF -: SVT -: Nasal polyps -: GERD -: Diabetes mellitus type 2insulin-dependent -: Gastroparesis -: Hyperlipidemia -: COPD -: RIGHT SANNA -: CHOLECYSTECTOMY -: NASAL POLYPECTOMY Psychosocial/ Personal History: Just moved to area and in with her Daughter - Social History Alcohol use: No CD- Drugs: No Caffeine use: Yes Place of Residence: Home Review of Systems 10-point ROS is otherwise unremarkable Respiratory: Cough, Shortness of Breath Cardiovascular: Chest Pain Gastrointestinal: Nausea, Vomiting Physical Examination - Physical Exam General: Alert, In no apparent distress, Oriented x3 HEENT: Atraumatic, PERRLA, EOMI Neck: Supple, 2+ carotid pulse no bruit, No LAD Respiratory: Diminished Cardiovascular: Regular rate/rhythm, Normal S1 S2 Gastrointestinal: Normal bowel sounds Musculoskeletal: No tenderness Integumentary: No rashes Neurological: Normal speech, Normal strength at 5/5 x4 extr, Normal tone, Normal affect - Studies Laboratory Data (last 24 hrs) 02/24/24 02/24/24 02/24/24 14:14 13:02 13:02 WBC 9.50 Hgb 14.7 Hct 43.0 Plt Count 338 PT 13.7 H INR 1.25 APTT 32.4 Sodium 139 Potassium 3.6 BUN 8 Creatinine 0.82 Glucose 139 H Magnesium 2.0 Total Bilirubin 1.4 H AST 15 ALT 35 Alkaline Phosphatase 237 H Assessment and Plan - Plan Assessment: Acute hypoxic respiratory failure secondary to pneumonia versus pneumonitis Intractable nausea/vomiting with history of gastroparesis/GERD/gastritis Diabetes mellitus type 2insulin-dependent Chronic diastolic congestive heart failure History of SVT Hypertension Hyperlipidemia COPD Plan: Acute hypoxic respiratory failure secondary to pneumonia versus pneumonitis Recent previous CTs with groundglass opacities/infectious/inflammatory findings Patient is mildly hypoxic on room air with sats around 88% Continue antibiotics Rocephin/doxycycline Blood cultures obtained in EDfollow Will consult pulmonology Intractable nausea/vomiting with history of gastroparesis/GERD/gastritis Reports constant vomiting last 4 days unable to tolerate anything by mouth Many similar episodes in the past, believes she was told to gastroparesis Had EGD/colonoscopy within the last 2 months patient reports findings of gastritis Continue twice daily IV PPI, Reglan Clear liquid diet, advance as tolerated Will consider Carafate as well if there is not improvement Diabetes mellitus type 2insulin-dependent ACHS Accu-Chek, sliding scale insulin Takes 70/30 insulin at home, not tolerating by mouth this time will hold until blood sugars persistently elevated Chronic diastolic congestive heart failure Had recent echocardiogram normal ejection fraction, was previous on Entresto but this was discontinued per patient Continue IV fluid given lack of oral intake with nausea and vomiting last 4 days Monitor volume status closely History of SVT Currently with sinus tachycardia rate around 120 Continue IV fluids Monitor on telemetry Continue carvedilol Hypertension Hyperlipidemia Home medications continued COPD As needed nebulizer treatments DVT PPX: Lovenox Code status: Full Discharge Plan: Home Plan to discharge in: Greater than 2 days - Advance Directives Does patient have a Living Will: No Does patient have a Durable POA for Healthcare: No - Code Status/Comfort Care Code Status Assessed: Yes (Full code) Critical Care: No Time Spent Managing Pts Care (In Minutes): 70
[2024-02-24] MEDS ORDERED: ONDANSETRON 4 MG/2 ML VIAL IV PRN (16:13)
[2024-02-24] MEDS ORDERED: SODIUM CHLORIDE 0.9% 10ML INJ IV PRN (16:13)
[2024-02-24] MEDS: INSULIN REGULAR (HUMAN) 100 UNIT/ML SQ SCH (16:30)
[2024-02-24] MEDS: carvediloL 12.5 MG TAB PO SCH (17:15)
[2024-02-24] MEDS: ENOXAPARIN 40 MG/0.4 ML SQ SCH (17:15)
[2024-02-24] MEDS: NA CHLORIDE 0.9% 1,000 ML IV SCH (17:15)
[2024-02-24] MEDS: METOCLOPRAMIDE 10 MG/2mL INJ IV PRN (17:18)
[2024-02-24 17:35] VITALS: BMI 27.5
[2024-02-24] MEDS: ATORVASTATIN 40 MG TAB PO SCH (21:00)
[2024-02-24] MEDS: DOXYCYCLINE 100 MG in NA CHLORIDE 0.9% 100 ML IVPB SCH (21:11)
[2024-02-24] MEDS: PANTOPRAZOLE 40 MG INJ IVP SCH (21:11)
[2024-02-24] MEDS: METOPROLOL TARTRATE 5 MG/5 ML INJ IV STA (22:59)
[2024-02-25] MEDS: METHYLPREDNISOLONE 40 MG INJ IV SCH (00:23)
[2024-02-25 03:46] LABS: Absolute Eosinophils 1.3 K/uL (0-0.5); Absolute Lymphocytes (CBC) 0.4 K/uL (0.7-4.9); Absolute Monocytes 0.2 K/uL (0.1-1.3); Absolute Neutrophil 5.6 K/uL (1.8-8.0); Basophils % 0.3 % (0-1.3); Eosinophils % 17.2 % (0-4.4); Hematocrit 42.2 % (36.0-45.0); Lymphocytes % 4.8 % (15.3-44.8); MCH 31.1 pg (27.0-35.0); MCHC 33.2 g/dL (32.0-36.0); MCV 93.6 fL (80-100); MPV 8.6 fL (7.6-11.3); Monocytes % 3.1 % (3.3-12.3); Neutrophils % 74.6 % (41.7-73.7); Platelets 301 thou/uL (152-406); Red Cell Distribution Width 14.9 % (12.1-15.2)
[2024-02-25 04:10] LABS: Albumin 2.9 g/dL (3.4-5.0); Anion Gap 11.2 mEq/L (5.0-15.0); Bilirubin Total 1.2 mg/dL (0.2-1.0); Globulin 2.9 g/dL (2.3-3.5); Potassium 4.2 mEq/L (3.5-5.1); Protein, Total 5.8 g/dL (6.4-8.2); Thyroid Stimulating Hormone 0.314 uIU/mL (0.358-3.740)
[2024-02-25] MEDS: METOPROLOL TAR 25 MG TAB PO SCH (06:00)
[2024-02-25] MEDS: DOXYCYCLINE HYCLATE 100MG INJ ONE (08:36)
[2024-02-25] MEDS: AMLODIPINE 5 MG TAB PO SCH (09:35)
[2024-02-25] MEDS: CEFTRIAXONE 1,000 MG in NA CHLORIDE 0.9% 50 ML IVPB SCH (09:39)
[2024-02-25] MEDS: ALPRAZOLAM 0.25 MG TABLET PO PRN (09:39)
--- NOTE | 2024-02-25 09:39 | EKG ---
Test Date: 2024-02-24 Test Time: 11:54:53 [employer]vel Machine Operator: HALLE MEASUREMENT RESULTS: Intervals: Rate: 126 CT: 146 QRSD: 90 QT: 312 QTc: 451 [place]: P: 83 CT: 146 QRS: 92 T: 88 INTERPRETIVE STATEMENTS: Sinus tachycardia Right atrial enlargement Anterior infarct, age undetermined Abnormal ECG Compared to ECG 02/13/2024 12:26:38 Myocardial infarct finding now present Fusion complex(es) no longer present Indeterminate axis no longer present Electronically Signed On 02-25-24 09:38:20 CDT by Cristi Leiva
--- NOTE | 2024-02-25 11:08 | P.PN ---
Date of Service: 02/25/24 Subjective: Feeling much better today Tolerating diet Off oxygen ROS: 10 point ROS as noted above, otherwise negative Physical exam GEN: Alert, oriented, NAD HEENT: Normal conjunctiva, sclera anicteric CV: Regular rate and rhythm, no edema Pulm: Nonlabored respirations on room air ABD: Soft, nontender, nondistended MSK: No joint tenderness Integumentary: No rashes Neuro: Normal speech, normal affect Vitals reviewed Assessment: Acute hypoxic respiratory failure secondary to pneumonia versus pneumonitis Intractable nausea/vomiting with history of gastroparesis/GERD/gastritis Diabetes mellitus type 2insulin-dependent Chronic diastolic congestive heart failure History of SVT Hypertension Hyperlipidemia COPD Plan: Acute hypoxic respiratory failure secondary to pneumonia versus pneumonitis Recent previous CTs with groundglass opacities/infectious/inflammatory findings Patient is mildly hypoxic on room air with sats around 88% Continue antibiotics [facility]in[facility] Improved, off of oxygen today-breathing much better Intractable nausea/vomiting with history of gastroparesis/GERD/gastritis Reports constant vomiting last 4 days unable to tolerate anything by mouth Many similar episodes in the past, believes she was told to gastroparesis Had EGD/colonoscopy within the last 2 months patient reports findings of gastritis Continue twice daily IV PPI, Reglan Tolerating clear liquids this morning, feeling much better Advance diet to carb consistent Diabetes mellitus type 2insulin-dependent ACHS Accu-Chek, sliding scale insulin Takes 70/30 insulin at home, will resume when sugars are persistently elevated Chronic diastolic congestive heart failure Had recent echocardiogram normal ejection fraction, was previous on Entresto but this was discontinued per patient Continue IV fluid given lack of oral intake with nausea and vomiting last 4 days Monitor volume status closely History of SVT Rate improved around 100 currently Continue IV fluids Monitor on telemetry Continue carvedilol Hypertension Hyperlipidemia Home medications continued COPD As needed nebulizer treatments DVT PPX: Lovenox Code status: Full Discharge Plan: Home Plan to discharge in: Greater than 2 days VTE: Code: Dispo: Time Spent Managing Pts Care (In Minutes): 35
[2024-02-25] MEDS: HYDROCODONE/APAP 5/325 MG TAB PO PRN (14:34)
[2024-02-25] MEDS: BENZONATATE 100 MG CAP PO PRN (14:35)
[2024-02-25] MEDS: ALBUTEROL 2.5 MG/3 ML NEB SOL NEB PRN (20:08)
[2024-02-26 04:41] LABS: Absolute Eosinophils 0.6 K/uL (0-0.5); Absolute Lymphocytes (CBC) 1.5 K/uL (0.7-4.9); Absolute Monocytes 0.7 K/uL (0.1-1.3); Absolute Neutrophil 3.7 K/uL (1.8-8.0); Basophils % 0.3 % (0-1.3); Hematocrit 32.1 % (36.0-45.0); Hemoglobin 10.9 g/dL (12.0-15.0); Lymphocytes % 23.5 % (15.3-44.8); MCH 31.5 pg (27.0-35.0); MCV 92.8 fL (80-100); MPV 8.7 fL (7.6-11.3); Neutrophils % 57.2 % (41.7-73.7); Platelets 248 thou/uL (152-406); RBC Red Blood Cell Count 3.46 M/uL (3.86-4.86); Red Cell Distribution Width 14.6 % (12.1-15.2)
[2024-02-26 04:56] LABS: Albumin 2.7 g/dL (3.4-5.0); Anion Gap 7.7 mEq/L (5.0-15.0); Bilirubin Total 0.5 mg/dL (0.2-1.0); Globulin 2.8 g/dL (2.3-3.5); Potassium 3.7 mEq/L (3.5-5.1); Protein, Total 5.5 g/dL (6.4-8.2)
[2024-02-26] MEDS: POTASSIUM CL SA 10 MEQ TAB PO ONE (09:06)
[2024-02-26 09:28] VITALS: BP 98/64
[2024-02-26 10:38] VITALS: TEMP 96.8; O2SAT 96
--- NOTE | 2024-02-26 12:00 | P.DS ---
Admission Date: 02/24/24 Discharge Date: 02/26/24 Disposition: ROUTINE DISCHARGE Discharge Condition: GOOD Brief History of Present Illness: 53-year-old female with history of CHF, COPD, diabetes mellitus type 2insulin- dependent, hypertension, hyperlipidemia, GERD, gastroparesis presents emergency department chief complaint of vomiting, chest pain, shortness of breath. She reports that for the last 4 days she has been vomiting constantly, she has had many episodes like this in the past reportedly at least 20 with very similar symptoms. She believes in the past she has been told it was gastroparesis. She did have a recent hospitalization here for elevated troponin, at that time she had a heart catheterization without need for intervention as well as an echocardiogram with a normal ejection fraction. She was previously on Entresto but reports she was told to stop it although she is unsure how long ago that was. Previous CT scans showed mild to moderate bilateral reticular lung opacities, mild bilateral groundglass opacities which may be infectious or inflammatory. Chest x-ray performed today showed patchy opacities present in both lung bases greater in the right likely indicating pneumonia. Room air sats are in the high 80s. Previous CT scans also identified distal esophageal thickening, patient reports she had a EGD and colonoscopy a few months ago and was told she had gastritis and something with her esophagus although she could not be clear about what was seen. ED provider wishes to admit patient for further evaluation and management of pneumonia, hypoxia, intractable vomiting. Hospital Course: Assessment: Acute hypoxic respiratory failure secondary to pneumonia versus pneumonitis Intractable nausea/vomiting with history of gastroparesis/GERD/gastritis Diabetes mellitus type 2insulin-dependent Chronic diastolic congestive heart failure History of SVT Hypertension Hyperlipidemia COPD Patient was admitted to the hospital for intractable nausea/vomiting as well as shortness of breath/hypoxia. She was treated with IV twice daily Protonix, as needed IV Reglan and had significant improvement in her GI symptoms overnight. She does report that she had a EGD performed a few months ago which showed some gastritis, she does take Protonix daily. In regards to her shortness of breath she was requiring oxygen but overnight once her nausea and vomiting resolved she was no longer requiring oxygen and felt much better. Chest x-ray was obtained which revealed patchy opacities present both lungs greater in the right likely indicating pneumonia. She was treated with antibiotics Rocephin/doxycycline and has been afebrile throughout hospitalization. Evening of 3/30 patient did complain of some chest and abdominal pain as well as shortness of breath which occurred shortly after a phone call with her family that made her quite angry, she reports that her symptoms resolved shortly after this and did not recur, currently denies any chest pain/abdominal pain. She is breathing well on room air at this time. She had a recent hospitalization in early January at which time she had a echocardiogram which showed normal ejection fraction and a heart catheterization which did not show any obstructive coronary artery disease. She also had a CTA of the chest during ER visit which was performed on 02/13/2024 which showed patchy dependent medial bibasilar airspace opacities concerning for pneumonitis with bronchial wall thickening and secretions/mucoid impaction along the leading bronchioles, also noted circumferential wall thickening of the mid to distal esophagus suggesting infectious/inflammatory esophagitis or reflux which is stable. At discharge patient is to have the following adjustments made to her medications Increase Protonix 40 mg daily to Protonix 40 mg mouth twice daily Take Augmentin 875 mg by mouth twice daily for 4 additional days to complete treatment course for pneumonia Please follow-up with your primary care doctor in 1 to 2 weeks Please also follow-up with the pulmonology regarding this pneumonia/pneumonitis Vital Signs/Physical Exam: Temp Pulse Resp BP Pulse Ox 96.8 F 78 16 98/64 96 02/26/24 08:00 02/26/24 09:00 02/26/24 08:00 02/26/24 09:00 02/26/24 08:00 General: Alert, In no apparent distress, Oriented x3 HEENT: Atraumatic, PERRLA, EOMI Neck: Supple, JVD not distended Respiratory: Clear to auscultation bilaterally, Normal air movement Cardiovascular: Regular rate/rhythm, Normal S1 S2 Gastrointestinal: Normal bowel sounds Musculoskeletal: No tenderness Integumentary: No rashes Neurological: Normal speech, Normal tone Laboratory Data at Discharge: WBC 6.50 thou/uL (4.3-10.9) 02/26/24 04:03 Hgb 10.9 g/dL (12.0-15.0) L D 02/26/24 04:03 Hct 32.1 % (36.0-45.0) L 02/26/24 04:03 Plt Count 248 thou/uL (152-406) 02/26/24 04:03 PT 13.7 SECONDS (9.5-12.5) H 02/24/24 14:14 INR 1.25 02/24/24 14:14 APTT 32.4 SECONDS (24.3-36.9) 02/24/24 14:14 Sodium 141 mEq/L (136-145) 02/26/24 04:03 Potassium 3.7 mEq/L (3.5-5.1) 02/26/24 04:03 BUN 18 mg/dL (7-18) 02/26/24 04:03 Creatinine 0.80 mg/dL (0.55-1.02) 02/26/24 04:03 Glucose 136 mg/dL (74-106) H 02/26/24 04:03 Magnesium 2.0 mg/dL (1.6-2.4) 02/26/24 04:03 Total Bilirubin 0.5 mg/dL (0.2-1.0) 02/26/24 04:03 AST 12 U/L (15-37) L 02/26/24 04:03 ALT 17 U/L (13-56) 02/26/24 04:03 Alkaline Phosphatase 137 U/L (45-117) H D 02/26/24 04:03 Lipase 70 U/L (13-75) 02/26/24 04:03 Home Medications: Amlodipine [Norvasc*] 5 mg PO DAILY 01/26/24 Atorvastatin Calcium [Lipitor] 40 mg PO BEDTIME 01/26/24 Insulin 70/30 NPH/Reg Human [Novolin 70/30*] 30 unit SQ BIDWM 01/26/24 Metformin HCl 1,000 mg PO BIDWM 01/26/24 Alprazolam [Xanax] 0.25 mg PO Q12HP PRN #30 tab 01/27/24 Aspirin [Aspirin EC 81 MG] 81 mg PO DAILY #30 tab 01/27/24 Atorvastatin Calcium [Lipitor] 40 mg PO BEDTIME #30 tab 01/27/24 Budesonide [Pulmicort*] 1 amp IH BID #60 amp 01/27/24 Escitalopram Oxalate [Lexapro] 10 mg PO DAILY #30 tab 01/27/24 Fluticasone [Flonase 50MCG Nasal [place]*] 2 sprays CARRILLO DAILY #1 bottle 01/27/24 Ipratropium/Albuterol Sulfate [Iprat-Albut 0.5-3(2.5) mg/3 ml] 3 ml IH Q6HP PRN #120 amp 01/27/24 Metoclopramide HCl [Reglan] 10 mg PO QIDP PRN #60 tab 01/27/24 Amox/Clavulanate [Augmentin 875-125 Tab] 875 mg PO BID 4 Days #8 tab 02/26/24 Pantoprazole [Protonix Tab] 40 mg PO BID 30 Days #60 tab 02/26/24 New Medications: Amox/Clavulanate [Augmentin 875-125 Tab] 875 mg PO BID 4 Days #8 tab Pantoprazole [Protonix Tab] 40 mg PO BID 30 Days #60 tab Physician Discharge Instructions: Patient was admitted to the hospital for intractable nausea/vomiting as well as shortness of breath/hypoxia. She was treated with IV twice daily Protonix, as needed IV Reglan and had significant improvement in her GI symptoms overnight. She does report that she had a EGD performed a few months ago which showed some gastritis, she does take Protonix daily. In regards to her shortness of breath she was requiring oxygen but overnight once her nausea and vomiting resolved she was no longer requiring oxygen and felt much better. Chest x-ray was obtained which revealed patchy opacities present both lungs greater in the right likely indicating pneumonia. She was treated with antibiotics Rocephin/doxycycline and has been afebrile throughout hospitalization. Evening of 02/24 patient did complain of some chest and abdominal pain as well as shortness of breath which occurred shortly after a phone call with her family that made her quite angry, she reports that her symptoms resolved shortly after this and did not recur, currently denies any chest pain/abdominal pain. She is breathing well on room air at this time. She had a recent hospitalization in early January at which time she had a echocardiogram which showed normal ejection fraction and a heart catheterization which did not show any obstructive coronary artery disease. She also had a CTA of the chest during ER visit which was performed on 02/13/2024 which showed patchy dependent medial bibasilar airspace opacities concerning for pneumonitis with bronchial wall thickening and secretions/mucoid impaction along the leading bronchioles, also noted circumferential wall thickening of the mid to distal esophagus suggesting infectious/inflammatory esophagitis or reflux which is stable. At discharge patient is to have the following adjustments made to her medications Increase Protonix 40 mg daily to Protonix 40 mg mouth twice daily Take Augmentin 875 mg by mouth twice daily for 4 additional days to complete treatment course for pneumonia Please follow-up with your primary care doctor in 1 to 2 weeks Please also follow-up with the pulmonology regarding this pneumonia/pneumonitis Diet: [place] Activity: Ad garrett Followup: Scot Busch MD [ACTIVE - CAN ADMIT] - 1-2 Weeks (Call for appointment.) JENNA WEST [Primary Care Provider] - 1-2 Weeks Time spent managing pt's care (in minutes): 35
== END 2024-02-26 12:00 | disposition home or self-care (01) | DRG 193 ==
LOC: ER 12:40 → ERHOLD 15:19 → 4TH 15:35
PROVIDERS: ADMIT Hospitalist; ATTEND Hospitalist
DX: J18.9 Pneumonia, unspecified organism (principal); J96.01 Acute respiratory failure with hypoxia; J44.0 Chronic obstructive pulmonary disease with (acute) lower respiratory infection; I50.32 Chronic diastolic (congestive) heart failure; I47.10 Supraventricular tachycardia, unspecified; I11.0 Hypertensive heart disease with heart failure; E11.43 Type 2 diabetes mellitus with diabetic autonomic (poly)neuropathy; K31.84 Gastroparesis; E78.5 Hyperlipidemia, unspecified; K21.00 Gastro-esophageal reflux disease with esophagitis, without bleeding; K29.70 Gastritis, unspecified, without bleeding; F17.210 Nicotine dependence, cigarettes, uncomplicated; Z79.4 Long term (current) use of insulin; Z90.49 Acquired absence of other specified parts of digestive tract; Z79.84 Long term (current) use of oral hypoglycemic drugs; Z79.82 Long term (current) use of aspirin; Z79.899 Other long term (current) drug therapy
CPT/HCPCS: 36415; 71045; 80048; 80053; 80076; 82947; 83605; 83690; 83735; 83880; 84439; 84443; 84484; 85025; 85610; 85730; 87040; 93005; 94640; 96361; 96365; 96366; 96368; 96375; 99285; C9113; J0696; J1650; J2405; J2765; J2920; J7030; J7040; J7050; J7613

== ENCOUNTER 2024-03-30 04:17 | Inpatient (IN) | payer OTHER ==
--- NOTE | 2024-03-30 10:22 | ER ---
Nurse's Notes [facility] Name: Dari Calvillo Age: 53 yrs Sex: Female : 1970 Arrival Date: 03/30/2024 Time: 04:17 Bed 2 Private MD: Diagnosis: COPD/ Chronic obstructive pulmonary disease with (acute) exacerbation;Hypoxemia;Chronic combined systolic (congestive) and diastolic (congestive) heart failure;Chest pain, unspecified;Abnormal electrocardiogram [ECG] [EKG];Tobacco abuse counseling;Tobacco use;Hypokalemia Presentation: 03/30 04:28 Chief complaint: EMS states: 53 year old female reports chest pain and SOB since ha1 yesterday. Also, nausea and vomiting. breathing treatment was given. Coronavirus screen: Vaccine status:. Ebola Screen: No symptoms or risks identified at this time. Initial Sepsis Screen: Does the patient meet any 2 criteria? No. Patient's initial sepsis screen is negative. Does the patient have a suspected source of infection? No. Patient's initial sepsis screen is negative. Risk Assessment: Do you want to hurt yourself or someone else? Patient reports no desire to harm self or others. Onset of symptoms was March 30, 2024. 04:28 Method Of Arrival: EMS: [facility] ha1 04:28 Acuity: HILDA 2 ha1 Triage Assessment: 04:28 General: Appears uncomfortable, ill, Behavior is cooperative. Pain: Complains of pain ha1 in chest Pain does not radiate. Pain currently is 9 out of 10 on a pain scale. Quality of pain is described as pressure. Neuro: Level of Consciousness is awake, alert, obeys commands, Oriented to person, place, time, situation. Cardiovascular: Patient's skin is warm and dry. Respiratory: Reports shortness of breath at rest Airway is patent Respiratory effort is even, unlabored, Respiratory pattern is regular, symmetrical, Onset: The symptoms/episode began/occurred yesterday, the patient has moderate shortness of breath. GI: Abdomen is round non-distended, Bowel sounds present X 4 quads. Reports nausea, vomiting. : No signs and/or symptoms were reported regarding the genitourinary system. Derm: Skin is pink, warm \T\ dry. Musculoskeletal: Circulation, motion, and sensation intact. Range of motion: intact in all extremities. Historical: - Allergies: 04:32 NSAIDS; ha1 - PMHx: 04:32 Congestive heart failure; COPD; diabetes mellitus; Hypertensive disorder; SVT; ha1 - PSHx: 04:32 Right hip; ha1 - Immunization history:: Adult Immunizations unknown. - Infectious Disease History:: Denies. - Social history:: Smoking status: Patient reports the use of cigarette tobacco products, smokes one-half pack cigarettes per day. - Family history:: not pertinent. Screenin:35 [facility] ED Fall Risk Assessment (Adult) History of falling in the last 3 months, ha1 including since admission No falls in past 3 months (0 pts) Confusion or Disorientation No (0 pts) Intoxicated or Sedated No (0 pts) Impaired Gait No (0 pts) Mobility Assist Device Used No (0 pt) Altered Elimination No (0 pt) Score/Fall Risk Level 0 - 2 = Low Risk Oriented to surroundings, Maintained a safe environment, Educated pt \T\ family on fall prevention, incl call for assistance when getting out of bed, Hourly rounding (assess needs \T\ fall precautionary measures) done. Abuse screen: Denies threats or abuse. Denies injuries from another. Nutritional screening: No deficits noted. Tuberculosis screening: No symptoms or risk factors identified. Assessment: 04:28 Reassessment: see triage assessment. ha1 04:35 Respiratory: Patient placed on BiPAP: FiO2%: 30. ha1 05:25 Reassessment: Patient and/or family updated on plan of care and expected duration. Pain ha1 level reassessed. Patient is alert, oriented x 3, equal unlabored respirations, skin warm/dry/pink. Patient states feeling better. Patient states symptoms have improved. Cardiovascular: Rhythm is regular. Respiratory: Airway is patent Respiratory effort is even, unlabored, Respiratory pattern is regular, symmetrical, Breath sounds with wheezes bilaterally. Respiratory: Patient placed on BiPAP:. 06:20 Reassessment: Patient and/or family updated on plan of care and expected duration. Pain ha1 level reassessed. Patient is alert, oriented x 3, equal unlabored respirations, skin warm/dry/pink. 06:20 Reassessment: Patient states feeling better. Patient states symptoms have improved. ha1 Respiratory: Airway is patent Respiratory effort is even, unlabored, Respiratory pattern is regular, symmetrical. 07:20 Reassessment: Patient and/or family updated on plan of care and expected duration. Pain ap3 level reassessed. patient actively vomiting. GI: Pt is actively vomiting. 08:34 Reassessment: faxed report to second floor. ap3 Vital Signs: 04:28 BP 125 / 79; Pulse 94; Resp 20 S; Temp 97.6; Pulse Ox 92% on 10 lpm Simple Mask; Weight ha1 77.11 kg; 05:20 BP 133 / 86; Pulse 85; Resp 22 S; Pulse Ox 100% on 30 lpm BiPAP; ha1 06:25 BP 128 / 86; Pulse 95; Resp 20 S; Pulse Ox 96% on R/A; ha1 07:39 BP 143 / 87; Pulse 84; Resp 16; Pulse Ox 96% on R/A; ap3 ED Course: 04:23 Patient arrived in ED. ra3 04:28 Eugene Prabhakar MD is Attending Physician. romy 04:28 Arm band placed on right wrist. ha1 04:28 EKG completed in triage. Results shown to MD. ha1 04:28 Patient has correct armband on for positive identification. Placed in gown. Bed in low ha1 position. Call light in reach. Side rails up X2. 04:32 Triage completed. ha1 04:35 Inserted saline lock: 20 gauge in right antecubital area, using aseptic technique. km8 Blood collected. 05:00 Initial lab(s) drawn, by oh, sent to lab. First set of blood cultures drawn by brennan dill Second set of blood cultures drawn EKG done, by ED staff, reviewed by Eugene Prabhakar MD. 05:06 Bishnu Childress MD is Hospitalizing Provider. [facility] 07:37 Tiffany Dawson, JEFFREY is Primary Nurse. ap3 Administered Medications: 04:45 Drug: Levalbuterol Inhalation 3.75 mg Inhalation once Route: Inhalation; ha1 04:45 Drug: Ondansetron IVP 4 mg IVP once; over 2 minutes Route: IVP; Site: right antecubital;ha1 05:30 Follow up: Response: No adverse reaction; Marked relief of symptoms ha1 04:47 Drug: morphine IVP or IV 2 mg IVP once over 4 mins Route: IVP; Infused Over: 4 mins; ha1 Site: right antecubital; 05:10 Follow up: Response: No adverse reaction; Pain is decreased; RASS: Alert and Calm (0) ha1 05:00 Drug: Aspirin PO Chewable Tablet 162 mg PO once Route: PO; ha1 05:30 Follow up: Response: No adverse reaction ha1 05:02 Drug: Famotidine IVP 20 mg IVP once; dilute with 10 mL 0.9% NaCl; give over 2 minutes ha1 Route: IVP; Site: right antecubital; 05:15 Follow up: Response: No adverse reaction; Marked relief of symptoms ha1 05:04 Drug: MethylPrednisoLONE IVP 125 mg IVP once Route: IVP; Site: right antecubital; ha1 05:30 Follow up: Response: No adverse reaction 1 05:06 Drug: Furosemide IVP 40 mg IVP once; give over 2 minutes Route: IVP; Site: right [facility] antecubital; 05:30 Follow up: Response: No adverse reaction 1 05:22 Drug: levofloxacin IVPB 500 mg 100 ml IVPB once over 60 mins Volume: 100 ml; Route: km8 IVPB; Infused Over: 60 mins; Site: right antecubital; 06:30 Follow up: Response: No adverse reaction; IV Status: Completed infusion; IV Intake: ha1 100ml 05:25 Drug: NS 0.9% IV 1000 ml IV at 75 ml/hr continuous Route: IV; Rate: 75 ml/hr; [facility]; 06:24 Drug: Ondansetron IVP 4 mg IVP once; over 2 minutes Route: IVP; Site: right antecubital;1 07:00 Follow up: Response: No adverse reaction; Marked relief of symptoms 1 07:00 Drug: Potassium PO Effervescent Tablet 50 mEq PO once; dissolve in 4 ounces of water or ha1 juice Route: PO; 07:00 Drug: Potassium Chloride IV 20 mEq IV at per protocol once; administer over 1-2 hours ha1 Route: IV; Rate: per protocol; Site: right antecubital; 07:41 Drug: Ondansetron IVP 4 mg IVP once; over 2 minutes Route: IVP; Site: right antecubital;ap3 Intake: 06:30 IV: 100ml; Total: 100ml. [facility] Outcome: 05:08 Decision to Hospitalize by Provider. [facility] 09:12 Patient left the ED. ap3 Signatures: Eugene Prabhakar MD MD cha Prokisch, Amanda RN RN ap3 Anastasia Wesley RN RN ha1 Olga Lidia Caputo RN RN km8 Rebecca Bishop ra3 Corrections: (The following items were deleted from the chart) 04:47 04:47 Inserted saline lock: 20 gauge in right antecubital area, using aseptic km8 technique. Blood collected. 8
--- NOTE | 2024-03-30 10:22 | EDPHYS ---
Physician Documentation [facility] Name: Dari Calvillo Age: 53 yrs Sex: Female : 1970 Arrival Date: 03/30/2024 Time: 04:17 Bed 2 Private MD: ED Physician Eugene Prabhakar HPI: 03/30 04:33 This 53 yrs old Black Female presents to ER via EMS with complaints of Breathing romy Difficulty. 04:33 The patient has shortness of breath at rest, with light activity. Onset: The romy symptoms/episode began/occurred just prior to arrival. Duration: The symptoms are continuous, and are steadily getting worse. The patient's shortness of breath is aggravated by exertion, light activity, supine position, is alleviated by elevating head, application of supplemental oxygen. Associated signs and symptoms: Pertinent positives: chest pain, non-productive cough, dizziness. Severity of symptoms: At their worst the symptoms were moderate in the emergency department the symptoms are unchanged. The patient has experienced similar episodes in the past, multiple times. Historical: - Allergies: 04:32 NSAIDS; ha1 - PMHx: 04:32 Congestive heart failure; COPD; diabetes mellitus; Hypertensive disorder; SVT; ha1 - PSHx: 04:32 Right hip; ha1 - Immunization history:: Adult Immunizations unknown. - Infectious Disease History:: Denies. - Social history:: Smoking status: Patient reports the use of cigarette tobacco products, smokes one-half pack cigarettes per day. - Family history:: not pertinent. ROS: 04:33 Constitutional: Negative for fever, chills, and weight loss, Eyes: Negative for injury, romy pain, redness, and discharge, ENT: Negative for injury, pain, and discharge, Neck: Negative for injury, pain, and swelling, Cardiovascular: Negative for chest pain, palpitations, and edema, Abdomen/GI: Negative for abdominal pain, nausea, vomiting, diarrhea, and constipation, Back: Negative for injury and pain, : Negative for injury, bleeding, discharge, and swelling, MS/Extremity: Negative for injury and deformity, Skin: Negative for injury, rash, and discoloration, Neuro: Negative for headache, weakness, numbness, tingling, and seizure, Psych: Negative for depression, anxiety, suicide ideation, homicidal ideation, and hallucinations, Allergy/Immunology: Negative for hives, rash, and allergies, Endocrine: Negative for neck swelling, polydipsia, polyuria, polyphagia, and marked weight changes, Hematologic/Lymphatic: Negative for swollen nodes, abnormal bleeding, and unusual bruising, 04:33 Cardiovascular: Positive for chest pain, Negative for edema, 04:33 Respiratory: Positive for cough, shortness of breath, wheezing, expiratory, Exam: 04:33 Constitutional: This is a well developed, well nourished patient who is awake, alert, romy and in no acute distress. Head/Face: Normocephalic, atraumatic. Eyes: Pupils equal round and reactive to light, extra-ocular motions intact. Lids and lashes normal. Conjunctiva and sclera are non-icteric and not injected. Cornea within normal limits. Periorbital areas with no swelling, redness, or edema. ENT: Nares patent. No nasal discharge, no septal abnormalities noted. Tympanic membranes are normal and external auditory canals are clear. Oropharynx with no redness, swelling, or masses, exudates, or evidence of obstruction, uvula midline. Mucous membranes moist. Neck: Trachea midline, no thyromegaly or masses palpated, and no cervical lymphadenopathy. Supple, full range of motion without nuchal rigidity, or vertebral point tenderness. No Meningismus. Chest/axilla: Normal chest wall appearance and motion. Nontender with no deformity. No lesions are appreciated. Cardiovascular: Regular rate and rhythm with a normal S1 and S2. No gallops, murmurs, or rubs. Normal PMI, no JVD. No pulse deficits. Abdomen/GI: Soft, non-tender, with normal bowel sounds. No distension or tympany. No guarding or rebound. No evidence of tenderness throughout. Back: No spinal tenderness. No costovertebral tenderness. Full range of motion. Female : Normal external genitalia. Skin: Warm, dry with normal turgor. Normal color with no rashes, no lesions, and no evidence of cellulitis. MS/ Extremity: Pulses equal, no cyanosis. Neurovascular intact. Full, normal range of motion. Neuro: Awake and alert, GCS 15, oriented to person, place, time, and situation. Cranial nerves II-XII grossly intact. Motor strength 5/5 in all extremities. Sensory grossly intact. Cerebellar exam normal. Normal gait. 04:33 ECG was reviewed by the Attending Physician. 04:33 Respiratory: moderate respiratory distress is noted, Respirations: labored breathing, that is mild, accessory muscle usage, that is mild, Breath sounds: rales, that are moderate, are located in both bases, bronchial sounds, decreased breath sounds, rhonchi, wheezing: expiratory 06:36 ECG was reviewed by the Attending Physician. [facility] Vital Signs: 04:28 BP 125 / 79; Pulse 94; Resp 20 S; Temp 97.6; Pulse Ox 92% on 10 lpm Simple Mask; Weight ha1 77.11 kg; 05:20 BP 133 / 86; Pulse 85; Resp 22 S; Pulse Ox 100% on 30 lpm BiPAP; ha1 06:25 BP 128 / 86; Pulse 95; Resp 20 S; Pulse Ox 96% on R/A; ha1 07:39 BP 143 / 87; Pulse 84; Resp 16; Pulse Ox 96% on R/A; ap3 MDM: 04:28 Patient medically screened. romy 04:37 Differential diagnosis: Anemia Anxiety Reaction CHF exacerbation, Chronic Obstructive romy Pulmonary Disease pneumonia, pulmonary edema, reactive airway disease, Unstable Angina. Antibiotic administration: Not indicated. Immunization status: Influenza vaccine: within last 5 years. Data reviewed: vital signs, nurses notes, lab test result(s), EKG, radiologic studies, plain films. Consideration of Admission/Observation Patient was admitted/placed on observation. Escalation of care including admission/observation considered. I considered the following discharge prescriptions or medication management in the emergency department Medications were administered in the Emergency Department. See MAR. Independent interpretation of the following test(s) in the Emergency Department EKG: See my EKG interpretation above. Test considered but Not performed: CT: no ct chest pe. Historians other than the Patient: EMS: ems well informed. Care significantly affected by the following chronic conditions: Diabetes, Hypertension, Congestive Heart Failure, Chronic Obstructive Pulmonary Disease, svt. Counseling: I had a detailed discussion with the patient and/or guardian regarding the historical points, exam findings, and any diagnostic results supporting the discharge/admit diagnosis, lab results, radiology results, the need for further work-up and treatment in the hospital. 03/30 04:33 Order name: Cardiac monitoring; Complete Time: 04:46 [facility] 03/30 04:33 Order name: EKG - Nurse/Tech; Complete Time: 04:46 [facility] 03/30 04:33 Order name: IV Saline Lock; Complete Time: 04:46 [facility] 03/30 04:33 Order name: Labs collected and sent; Complete Time: 04:46 [facility] 03/30 04:33 Order name: O2 Per Protocol; Complete Time: 04:47 [facility] 03/30 04:33 Order name: O2 Sat Monitoring; Complete Time: 04:47 [facility] 03/30 06:15 Order name: EKG - Nurse/Tech; Complete Time: 06:39 [facility] EC:33 Rate is 97 beats/min. Rhythm is regular. QRS Rudd is Normal. MS interval is normal. QRS romy interval is normal. QT interval is normal. No Q waves. T waves are Normal. Clinical impression: Abnormal EKG without significant change and No evidence of ischemia. Interpreted by me. Reviewed by me. 06:36 Rate is 93 beats/min. Rhythm is regular. QRS Rudd is Normal. MS interval is normal. QRS romy interval is normal. QT interval is normal. No Q waves. T waves are Normal. No ST changes noted. Clinical impression: NSR w/ Non-specific ST/T Changes and No evidence of ischemia. Interpreted by me. Reviewed by me. Administered Medications: 04:45 Drug: Levalbuterol Inhalation 3.75 mg Inhalation once Route: Inhalation; ha1 04:45 Drug: Ondansetron IVP 4 mg IVP once; over 2 minutes Route: IVP; Site: right antecubital;ha1 05:30 Follow up: Response: No adverse reaction; Marked relief of symptoms ha1 04:47 Drug: morphine IVP or IV 2 mg IVP once over 4 mins Route: IVP; Infused Over: 4 mins; ha1 Site: right antecubital; 05:10 Follow up: Response: No adverse reaction; Pain is decreased; RASS: Alert and Calm (0) ha1 05:00 Drug: Aspirin PO Chewable Tablet 162 mg PO once Route: PO; ha1 05:30 Follow up: Response: No adverse reaction ha1 05:02 Drug: Famotidine IVP 20 mg IVP once; dilute with 10 mL 0.9% NaCl; give over 2 minutes ha1 Route: IVP; Site: right antecubital; 05:15 Follow up: Response: No adverse reaction; Marked relief of symptoms ha1 05:04 Drug: MethylPrednisoLONE IVP 125 mg IVP once Route: IVP; Site: right antecubital; [facility] 05:30 Follow up: Response: No adverse reaction 1 05:06 Drug: Furosemide IVP 40 mg IVP once; give over 2 minutes Route: IVP; Site: right [facility] antecubital; 05:30 Follow up: Response: No adverse reaction [facility] 05:22 Drug: levofloxacin IVPB 500 mg 100 ml IVPB once over 60 mins Volume: 100 ml; Route: km8 IVPB; Infused Over: 60 mins; Site: right antecubital; 06:30 Follow up: Response: No adverse reaction; IV Status: Completed infusion; IV Intake: ha1 100ml 05:25 Drug: NS 0.9% IV 1000 ml IV at 75 ml/hr continuous Route: IV; Rate: 75 ml/hr; Site: [facility] right antecubital; 06:24 Drug: Ondansetron IVP 4 mg IVP once; over 2 minutes Route: IVP; Site: right antecubital;[facility] 07:00 Follow up: Response: No adverse reaction; Marked relief of symptoms [facility] 07:00 Drug: Potassium PO Effervescent Tablet 50 mEq PO once; dissolve in 4 ounces of water or ha1 juice Route: PO; 07:00 Drug: Potassium Chloride IV 20 mEq IV at per protocol once; administer over 1-2 hours ha1 Route: IV; Rate: per protocol; Site: right antecubital; 07:41 Drug: Ondansetron IVP 4 mg IVP once; over 2 minutes Route: IVP; Site: right antecubital;ap3 Disposition Summary: 03/30/24 05:08 Hospitalization Ordered Notes: Hospitalization Status: Inpatient Admission romy Provider: Bishnu Childress cha Location: Telemetry/[facility] (Inpatient) romy Condition: Fair romy Problem: new romy Symptoms: have improved romy Bed/Room Type: Standard romy Room Assignment: 212(03/30/24 08:04) dw Diagnosis - COPD/ Chronic obstructive pulmonary disease with (acute) exacerbation romy - Hypoxemia romy - Chronic combined systolic (congestive) and diastolic (congestive) heart failure romy - Chest pain, unspecified romy - Abnormal electrocardiogram [ECG] [EKG] romy - Tobacco abuse counseling romy - Tobacco use romy - Hypokalemia romy Forms: - Medication Reconciliation Form romy - SBAR form romy - Leadership Thank You Letter romy Signatures: Nel Durbin, RN RN Eugene Marie MD MD cha Prokisch, Amanda, RN RN ap3 Anastasia Wesley RN RN ha1 Olga Lidia Caputo RN RN km8 Corrections: (The following items were deleted from the chart) 08:04 05:08 romy ojeda
[2024-03-30] MEDS: SUCRALFATE 1 GM TABLET PO SCH (11:30)
[2024-03-30] MEDS: ENOXAPARIN 40 MG/0.4 ML SQ SCH (11:32)
[2024-03-30 11:37] LABS: Absolute Eosinophils 0.6 K/uL (0-0.5); Absolute Lymphocytes (CBC) 1.2 K/uL (0.7-4.9); Absolute Monocytes 0.6 K/uL (0.1-1.3); Absolute Neutrophil 9.4 K/uL (1.8-8.0); Basophils % 0.2 % (0-1.3); Eosinophils % 4.7 % (0-4.4); Hematocrit 46.3 % (36.0-45.0); Hemoglobin 15.2 g/dL (12.0-15.0); Lymphocytes % 10.4 % (15.3-44.8); MCHC 32.8 g/dL (32.0-36.0); MCV 91.5 fL (80-100); MPV 9.3 fL (7.6-11.3); Monocytes % 5.3 % (3.3-12.3); Neutrophils % 79.4 % (41.7-73.7); Nucleated Red Blood Cells % 0.1 % (0-0); Platelets 320 thou/uL (152-406); RBC Red Blood Cell Count 5.06 M/uL (3.86-4.86); Red Cell Distribution Width 13.8 % (12.1-15.2)
[2024-03-30 11:40] LABS: Albumin 3.4 g/dL (3.4-5.0); Anion Gap 8.9 mEq/L (5.0-15.0); Bilirubin Direct 0.3 mg/dL (0-0.2); Bilirubin Total 1.3 mg/dL (0.2-1.0); Globulin 3.4 g/dL (2.3-3.5); Magnesium 1.6 mg/dL (1.6-2.4); Potassium 2.9 mEq/L (3.5-5.1); Protein, Total 6.8 g/dL (6.4-8.2); Troponin High Sensitivity 24.7 pg/mL (<58.9)
[2024-03-30 11:59] LABS: PT Prothrombin Time 13.1 SECONDS (9.5-12.5); Protime INR 1.2
[2024-03-30] MEDS ORDERED: ALBUTEROL 2.5 MG/3 ML NEB SOL NEB PRN (13:47)
[2024-03-30] MEDS ORDERED: D50W 25 GM/50 ML SYRINGE IV PRN (13:47)
[2024-03-30] MEDS ORDERED: GLUCAGON 1 MG/VIAL IM PRN (13:47)
--- NOTE | 2024-03-30 14:35 | EKG ---
Test Date: 2024-03-30 Test Time: 04:22:57 Stained Glass Glazier: LUDMILA MEASUREMENT RESULTS: Intervals: Rate: 97 [place]: 166 QRSD: 102 QT: 370 QTc: 469 [place]: P: 80 [place]: 166 QRS: 77 T: 80 INTERPRETIVE STATEMENTS: Normal sinus rhythm Biatrial enlargement Low voltage QRS Abnormal ECG Compared to ECG 02/24/2024 11:54:53 Low QRS voltage now present Sinus tachycardia no longer present Myocardial infarct finding no longer present Electronically Signed On 03-30-24 14:35:08 CDT by Cristi Leiva
--- NOTE | 2024-03-30 14:35 | EKG ---
Test Date: 2024-03-30 Test Time: 06:31:39 Fine Arts Instructor: KELLY MEASUREMENT RESULTS: Intervals: Rate: 93 TN: 166 QRSD: 92 QT: 374 QTc: 465 [place]: P: 81 TN: 166 QRS: 83 T: 86 INTERPRETIVE STATEMENTS: Sinus rhythm with occasional premature ventricular complexes Biatrial enlargement Abnormal ECG Compared to ECG 03/30/2024 04:22:57 Ventricular premature complex(es) now present Electronically Signed On 03-30-24 14:35:04 CDT by Cristi Leiva
[2024-03-30] MEDS: PROMETHAZINE INJ 25 MG/ML AMP IV PRN (16:00)
[2024-03-30] MEDS: INSULIN REGULAR (HUMAN) 100 UNIT/ML SQ SCH (16:30)
[2024-03-30 16:55] LABS: Anion Gap 9.7 mEq/L (5.0-15.0); Potassium 3.7 mEq/L (3.5-5.1)
[2024-03-30 17:00] LABS: Troponin High Sensitivity 204.5 pg/mL (<58.9)
[2024-03-30] MEDS: HOME MED 1 EA UNK (Metformin Hcl [Metformin Hcl] 1,000 MG Tablet) PO SCH (17:00)
--- NOTE | 2024-03-30 19:20 | P.HP ---
Certification for Inpatient Patient admitted to: Inpatient With expected LOS: >2 Midnights Patient will require the following post-hospital care: None Practitioner: I am a practitioner with admitting privileges, knowledge of patient current condition, hospital course, and medical plan of care. Services: Services provided to patient in accordance with Admission requirements found in Title 42 Section 412.3 of the Code of Federal Regulations Patient History Date of Service: 03/30/24 Reason for admission: COPD exacerbation History of Present Illness: 53-year-old female with history of CHF, COPD, diabetes mellitus type 2insulin- dependent, hypertension, hyperlipidemia, GERD, gastroparesis presents emergency department chief complaint of vomiting, chest pain, shortness of breath. Allergies ibuprofen Allergy (Verified 03/30/24 10:26) Hives/Rash Home Medications: Amlodipine [Norvasc*] 5 mg PO DAILY 01/26/24 Atorvastatin Calcium [Lipitor] 40 mg PO BEDTIME 01/26/24 Insulin 70/30 NPH/Reg Human [Novolin 70/30*] 30 unit SQ BIDWM 01/26/24 Metformin HCl 1,000 mg PO BIDWM 01/26/24 Carvedilol [Coreg] 1 tab PO DAILY 03/30/24 Metoprolol Succinate [Toprol Xl*] 1 tab PO BID 03/30/24 Spironolactone 1 tab PO DAILY 03/30/24 Torsemide [Demadex*] 1 tab PO DAILY 03/30/24 - Past Medical/Surgical History Has patient received pneumonia vaccine in the past: No Diabetic: Yes -: HTN -: CHF -: SVT -: Nasal polyps -: GERD -: Diabetes mellitus type 2insulin-dependent -: Gastroparesis -: Hyperlipidemia -: COPD -: RIGHT SANNA -: CHOLECYSTECTOMY -: NASAL POLYPECTOMY Psychosocial/ Personal History: Just moved to area and in with her Daughter - Social History Smoking Status: Current every day smoker Alcohol use: No CD- Drugs: No Caffeine use: Yes Place of Residence: Home Review of Systems 10-point ROS is otherwise unremarkable Respiratory: Cough, Shortness of Breath Cardiovascular: Chest Pain Gastrointestinal: Nausea, Vomiting Physical Examination - Vital Signs Temperature: 97.6 F Blood Pressure: 143/87 Pulse: 84 Respirations: 16 - Physical Exam General: Alert, In no apparent distress, Oriented x3 HEENT: Atraumatic, PERRLA, EOMI Neck: Supple, 2+ carotid pulse no bruit, No LAD Respiratory: Diminished Cardiovascular: Regular rate/rhythm, Normal S1 S2 Gastrointestinal: Normal bowel sounds, No tenderness Musculoskeletal: No tenderness Integumentary: No rashes Neurological: Normal speech, Normal strength at 5/5 x4 extr, Normal tone - Studies Laboratory Data (last 24 hrs) 03/30/24 03/30/24 03/30/24 05:00 05:00 05:00 WBC 11.80 H Hgb 15.2 H Hct 46.3 H Plt Count 320 PT 13.1 H INR 1.20 Sodium 139 Potassium 2.9 L BUN 8 Creatinine 0.75 Glucose 210 H Magnesium 1.6 Total Bilirubin 1.3 H AST 8 L ALT 15 Alkaline Phosphatase 116 Lipase 391 H Assessment and Plan - Plan Assessment: Acute respiratory distress secondary to COPD exacerbation Intractable nausea/vomiting with history of gastroparesis/GERD/gastritis Diabetes mellitus type 2insulin-dependent Chronic diastolic congestive heart failure History of SVT Hypertension Hyperlipidemia Plan: Acute respiratory distress secondary to COPD exacerbation Required BiPAP in ED for work of breathing Symptoms improving Continue as needed nebulizer treatments, steroids Episodes of dyspnea seem to be related to nausea/vomiting as well Intractable nausea/vomiting with history of gastroparesis/GERD/gastritis Continue Carafate, Protonix Lipase elevated, will repeat lipase in the morning Consider CT abdomen/pelvis if symptoms not improving Diabetes mellitus type 2insulin-dependent ACHS Accu-Chek, sliding scale insulin Chronic diastolic congestive heart failure Continue home medication once verified Continue gentle IV fluids overnight monitor volume status closely History of SVT Hypertension Hyperlipidemia Home medications continued DVT PPX: Lovenox Code status: Full Discharge Plan: Home Plan to discharge in: 48 Hours - Advance Directives Does patient have a Living Will: No Does patient have a Durable POA for Healthcare: No - Code Status/Comfort Care Code Status Assessed: Yes (Full code) Critical Care: No Time Spent Managing Pts Care (In Minutes): 70
--- NOTE | 2024-03-30 19:30 | CON ---
Date of Consultation: 03/30/2024 Reason For Consultation: Chest pain. History Of Present Illness: This is a 53-year-old female, past medical history of COPD, diabetes, hy pertension, congestive heart failure, who presents to the emergency room with chest pain, retrosterna l, no radiation, sharp, lasts for a few minutes, she said while resting, not even doing any activity. She does not have any exertional chest pain. She has been having upper respiratory tract infection symptoms with nasal congestion and sore throat with nonproductive cough. Denies having any nausea, vomiting, or fever. Past Medical History: As outlined above in HPI. Medications: Refer to reconciliation sheet for detailed list. Allergies: IBUPROFEN. Family History: No premature coronary artery disease or cancer. Social History: She smokes half pack per day. Does not drink, use any drugs. Review of Systems: All systems reviewed were negative except those mentioned in HPI. Physical Examination: Vital signs: Reviewed. Head and Neck: Pupils are equal, reactive to light. Intact eye movements. No JVD. No cervical lym phadenopathy. Neck is supple. Thyroid is not enlarged. Lungs: Clear to auscultation bilaterally. No rhonchi, rales, or crackles. No accessory muscle use. Heart: Regular rate and rhythm. No extra sounds. Abdomen: Soft, nontender. Bowel sounds positive. No organomegaly. No masses or hernia. No rigidi ty or rebound. Extremities: No edema, clubbing, or cyanosis. Intact pulses. Skin: No rash. Neurologic: Alert, awake, oriented x3. No acute focal deficits appreciated. Lymph Nodes: No cervical, axillary lymphadenopathy. Investigations: First troponin is negative at 24. NT-proBNP 187. BUN 8, creatinine 0.75. Hemoglob in is 15.2. Assessment/recommendation: 1.Chest pain. It is atypical, but has multiple risk factors including smoking and hypertension. Ob serve serial sets of cardiac enzymes. Obtain echocardiogram and further plan accordingly and continu e baby aspirin. 2.Hypertension. Blood pressure is not well controlled. Recommend to add carvedilol 3.125 mg twice a day and titrate up as needed. 3.Upper respiratory tract infection, mild. No antibiotics are needed. 4.Hypokalemia. Replace potassium and reassess. 5.Elevated blood sugar. Recommend to check hemoglobin A1c and check lipids. SR/MODL Voice ID: [id number] Report ID: [id number]
[2024-03-30] MEDS: NA CHLORIDE 0.9% 1,000 ML ONE (20:10)
[2024-03-30] MEDS: NA CHLORIDE 0.9% 1,000 ML IV SCH (20:29)
[2024-03-30] MEDS: ATORVASTATIN 20 MG TAB ONE (20:30)
[2024-03-30] MEDS: ATORVASTATIN 40 MG TAB PO SCH (20:31)
[2024-03-30] MEDS ORDERED: D10W 125 ML IV PRN (22:15)
[2024-03-31 03:56] LABS: Absolute Eosinophils 0.1 K/uL (0-0.5); Absolute Lymphocytes (CBC) 1.1 K/uL (0.7-4.9); Absolute Monocytes 0.7 K/uL (0.1-1.3); Absolute Neutrophil 3.8 K/uL (1.8-8.0); Basophils % 0.3 % (0-1.3); Eosinophils % 1.1 % (0-4.4); Hematocrit 36.3 % (36.0-45.0); Hemoglobin 12.5 g/dL (12.0-15.0); Lymphocytes % 18.8 % (15.3-44.8); MCHC 34.5 g/dL (32.0-36.0); MCV 89.8 fL (80-100); MPV 8.5 fL (7.6-11.3); Monocytes % 12.3 % (3.3-12.3); Neutrophils % 67.5 % (41.7-73.7); Platelets 294 thou/uL (152-406); RBC Red Blood Cell Count 4.04 M/uL (3.86-4.86); Red Cell Distribution Width 13.7 % (12.1-15.2)
[2024-03-31 04:13] LABS: Anion Gap 7.3 mEq/L (5.0-15.0); Potassium 3.3 mEq/L (3.5-5.1)
[2024-03-31 04:19] LABS: Troponin High Sensitivity 190.3 pg/mL (<58.9)
[2024-03-31] MEDS: ONDANSETRON 4 MG/2 ML VIAL IV PRN (06:21)
[2024-03-31] MEDS: POTASSIUM CL SA 10 MEQ TAB PO ONE (07:56)
[2024-03-31] MEDS: ASPIRIN EC 81 MG TAB PO SCH (07:56)
[2024-03-31] MEDS: SPIRONOLACTONE 25 MG TABLET PO SCH (07:57)
[2024-03-31] MEDS: carvediloL 12.5 MG TAB PO SCH (07:58)
[2024-03-31] MEDS: AMLODIPINE 5 MG TAB PO SCH (07:58)
[2024-03-31] MEDS: METFORMIN HCL 500 MG TAB PO SCH (07:58)
[2024-03-31] MEDS: SODIUM CHLORIDE 0.9% 10ML INJ IV SCH (07:59)
[2024-03-31] MEDS: PANTOPRAZOLE 40 MG INJ IV SCH (07:59)
[2024-03-31] MEDS: MORPHINE 4 MG/ML SYR IV PRN (08:53)
--- NOTE | 2024-03-31 09:28 | P.PN ---
Date of Service: 03/31/24 Subjective: Still with nausea/vomiting overnight Reports mildly labored bleeding this morning Tolerating room air currently Reports some lower abdominal pain ROS: 10 point ROS as noted above, otherwise negative Physical exam GEN: Alert, oriented, NAD HEENT: Normal conjunctiva, sclera anicteric CV: Regular rate and rhythm, no edema Pulm: Nonlabored respirations on room air ABD: Soft, nontender, nondistended, mild epigastric/suprapubic tenderness MSK: No joint tenderness Integumentary: No rashes Neuro: Normal speech, normal affect Vitals reviewed Assessment: Acute respiratory distress secondary to COPD exacerbation Intractable nausea/vomiting with history of gastroparesis/GERD/gastritis Diabetes mellitus type 2insulin-dependent Chronic diastolic congestive heart failure History of SVT Hypertension Hyperlipidemia Plan: Acute respiratory distress secondary to COPD exacerbation Required BiPAP in ED for work of breathing Symptoms improving Continue as needed nebulizer treatments, steroids Episodes of dyspnea seem to be related to nausea/vomiting as well Tolerating room air today, feels her breathing is a bit labored Intractable nausea/vomiting with history of gastroparesis/GERD/gastritis Continue Carafate, Protonix Lipase elevated on admission, improved now Still with some nausea Consider CT abdomen/pelvis if symptoms not improving Diabetes mellitus type 2insulin-dependent ACHS Accu-Chek, sliding scale insulin Chronic diastolic congestive heart failure Home medications continued Continue gentle IV fluids overnight monitor volume status closely History of SVT Hypertension Hyperlipidemia Home medications continued DVT PPX: Lovenox Code status: Full Discharge Plan: Home Plan to discharge in: 48 Hours Time Spent Managing Pts Care (In Minutes): 35
[2024-03-31] MEDS: METHYLPREDNISOLONE 40 MG INJ IV SCH (11:16)
[2024-03-31 14:34] VITALS: BMI 26.2
--- NOTE | 2024-03-31 14:42 | RAD REPORT ---
EXAM DESCRIPTION: XR Chest, 1 View CLINICAL HISTORY: The patient is 53 years old and is Female; chest pain TECHNIQUE: Frontal view of the chest. COMPARISON: No relevant prior studies available. FINDINGS: Lungs: Prominent interstitial markings suggestive of interstitial edema. Hazy bibasilar opacification. Pleural space: Unremarkable. No pneumothorax. Heart: Unremarkable. Mediastinum: Unremarkable. Normal mediastinal contour. Bones/joints: No acute findings. Other findings: Lower chest is outside the field of view. IMPRESSION: 1. Prominent interstitial markings suggestive of interstitial edema. 2. Hazy bibasilar opacification. Electronically signed by: Todd Urias MD 03/30/2024 06:50 AM CDT Due to temporary technical issues with the PACS/Fluency reporting system, reports are being signed by the in house radiologists without review as a courtesy to insure prompt reporting. The interpreting radiologist is fully responsible for the content of the report.
[2024-03-31] MEDS: METOCLOPRAMIDE 10 MG/2mL INJ IV SCH (16:07)
[2024-03-31] MEDS: INSULIN REGULAR (HUMAN) 100 UNIT/ML SQ SCH (16:17)
--- NOTE | 2024-03-31 19:17 | PN ---
Date of Progress Note: 03/31/2024 Subjective: Seen by bedside. Doing clinically well. On and off chest pain still present. Cardiac enzymes slightly elevated. No nausea, vomiting, diarrhea. No dysuria, polyuria, or urinary urgency. All other systems reviewed are negative. Objective: Vital Signs: Reviewed. Head and Neck: Pupils are equal, reactive to light. Intact eye movements. No JVD. No cervical lym phadenopathy. Neck is supple. Thyroid is not enlarged. Lungs: Clear to auscultation bilaterally. No rhonchi, wheezing, crackles. No accessory muscle use. Heart: Regular rate and rhythm. No extra sounds. Abdomen: Soft, nontender. Bowel sounds positive. No organomegaly. No masses or hernia. No rigidi ty or rebound. Extremities: No edema, clubbing, or cyanosis. Intact pulses. Skin: No rash or nodule. Neurologic: Alert, awake, oriented x3. No acute focal deficits appreciated. Investigations: BUN 19, creatinine 0.80. Troponin peaked at 200. Hemoglobin is 12.5. Assessment/recommendation: 1.Chest pain with positive troponin. Troponin is trending down. Continue baby aspirin. Plan for c oronary angiogram early next week. 2.Hypertension, blood pressure is controlled, continue current therapy. 3.Upper respiratory tract infection with bronchitis, probably improving, continue current management . 4.Dyslipidemia. Continue statin. 5.We will plan for coronary angiogram on this patient early next week on Tuesday. /MODL Voice ID: [id number] Report ID: [id number]
[2024-04-01 03:58] LABS: Hematocrit 35.6 % (36.0-45.0); Hemoglobin 12.1 g/dL (12.0-15.0); MCH 30.7 pg (27.0-35.0); MCV 90.2 fL (80-100); MPV 8.7 fL (7.6-11.3); Platelets 241 thou/uL (152-406); RBC Red Blood Cell Count 3.95 M/uL (3.86-4.86); Red Cell Distribution Width 13.7 % (12.1-15.2)
[2024-04-01 04:04] LABS: Albumin 3.2 g/dL (3.4-5.0); Albumin/Globulin Ratio 1.1 (1.1-1.8); Bilirubin Total 0.7 mg/dL (0.2-1.0); Protein, Total 6.2 g/dL (6.4-8.2)
--- NOTE | 2024-04-01 09:34 | P.PN ---
Date of Service: 04/01/24 Subjective: Improving tolerating diet On room air ROS: 10 point ROS as noted above, otherwise negative Physical exam GEN: Alert, oriented, NAD HEENT: Normal conjunctiva, sclera anicteric CV: Regular rate and rhythm, no edema Pulm: Nonlabored respirations on room air ABD: Soft, nontender, nondistended, mild LLQ tenderness MSK: No joint tenderness Integumentary: No rashes Neuro: Normal speech, normal affect Vitals reviewed Assessment: Acute respiratory distress secondary to COPD exacerbation Elevated troponin Intractable nausea/vomiting with history of gastroparesis/GERD/gastritis Diabetes mellitus type 2insulin-dependent Chronic diastolic congestive heart failure History of SVT Hypertension Hyperlipidemia Plan: Acute respiratory distress secondary to COPD exacerbation Required BiPAP in ED for work of breathing Symptoms improving Continue as needed nebulizer treatments, steroids Episodes of dyspnea seem to be related to nausea/vomiting as well Tolerating room air today, feeling better Elevated troponin Tentative heart cath per cardiology Had heart cath late December Will review case with cardiology Intractable nausea/vomiting with history of gastroparesis/GERD/gastritis Continue Carafate, Protonix Lipase elevated on admission, improved now Still with some nausea Consider CT abdomen/pelvis if symptoms not improving Diabetes mellitus type 2insulin-dependent ACHS Accu-Chek, sliding scale insulin Chronic diastolic congestive heart failure Home medications continued Continue gentle IV fluids overnight monitor volume status closely History of SVT Hypertension Hyperlipidemia Home medications continued DVT PPX: Lovenox Code status: Full Discharge Plan: Home Plan to discharge in: 48 Hours Time Spent Managing Pts Care (In Minutes): 35 <Brock Leroy - Last Filed: 04/01/24 09:32> Patient seen and examined, plan of care discussed with Brock Leroy. Respiratory condition improved. Patient is currently tolerating room air. Acute respiratory failure resolved. Continue bronchodilators and steroid. Nausea and vomiting improved on Carafate and Protonix. Cardiology input appreciated. Patient's troponin was elevated but trended flat. Cardiology is planning cardiac catheterization tomorrow. <michel pineda - Last Filed: 04/01/24 15:57>
[2024-04-01] MEDS: ALPRAZOLAM 0.5 MG TABLET PO ONE (23:28)
[2024-04-02 05:02] VITALS: TEMP 97.6
[2024-04-02] MEDS ORDERED: HEPA 1000U/500MLS 2,000 UNIT/1,000 ML BAG IV ONE (06:59)
[2024-04-02] MEDS ORDERED: LIDOCAINE 1% 20 ML MDV ONE (06:59)
[2024-04-02] MEDS ORDERED: VERAPAMIL HCL 10 MG/4 ML VIAL IV ONE (06:59)
[2024-04-02] MEDS ORDERED: NITROGLYCERIN/D5W 50 MG/250 ML BTL IV ONE (06:59)
[2024-04-02] MEDS ORDERED: ATROPINE SULF 1 MG/10 ML SYR IV ONE (07:00)
[2024-04-02] MEDS ORDERED: NA CHLORIDE 0.9% 500 ML ONE (07:00)
[2024-04-02] MEDS ORDERED: FENTANYL CITR 100 MCG/2 ML ONE (07:00)
[2024-04-02] MEDS ORDERED: MIDAZOLAM HCL 2 MG/2 ML INJ ONE (07:00)
[2024-04-02] MEDS ORDERED: HEPARIN 10,000 UNIT/10 ML VIAL IV ONE (07:01)
[2024-04-02] MEDS ORDERED: TICAGRELOR 90 MG TABLET PO ONE (07:01)
[2024-04-02] MEDS ORDERED: CLOPIDOGREL 75 MG TABLET ONE (07:01)
[2024-04-02] MEDS ORDERED: HEPARIN 5000 UNIT/ML 1 ML VIAL ONE (07:01)
[2024-04-02] MEDS ORDERED: ASPIRIN 325 MG TAB ONE (07:02)
[2024-04-02 09:42] VITALS: BP 142/70; O2SAT 94
[2024-04-02 11:28] LABS: Hematocrit 40.6 % (36.0-45.0); Hemoglobin 13.3 g/dL (12.0-15.0); MCH 29.8 pg (27.0-35.0); MCHC 32.7 g/dL (32.0-36.0); Platelets 292 thou/uL (152-406); RBC Red Blood Cell Count 4.46 M/uL (3.86-4.86); Red Cell Distribution Width 13.8 % (12.1-15.2)
[2024-04-02 11:43] LABS: ALT/SGPT 14 U/L (13-56); Albumin 3.7 g/dL (3.4-5.0); Albumin/Globulin Ratio 1.1 (1.1-1.8); Alkaline Phosphatase 89 U/L (45-117); Anion Gap 6.5 mEq/L (5.0-15.0); BUN Blood Urea Nitrogen 12 mg/dL (7-18); Bicarbonate 32 mEq/L (21-32); Bilirubin Total 0.7 mg/dL (0.2-1.0); Globulin 3.4 g/dL (2.3-3.5); Glomerular Filtration Rate 105 ml/min (=/>90); Glucose Level 112 mg/dL (74-106); Lipase 64 U/L (13-75); Potassium 3.5 mEq/L (3.5-5.1); Protein, Total 7.1 g/dL (6.4-8.2); Sodium Level 141 mEq/L (136-145)
[2024-04-02 11:44] LABS: AST/SGOT < 4 U/L (15-37)
--- NOTE | 2024-04-02 12:23 | P.PN ---
Subjective Date of Service: 04/02/24 Chief Complaint: COPD exacerbation Subjective: No new changes Review of Systems 10-point ROS is otherwise unremarkable Physical Examination - Vital Signs Temperature: 97.6 F Blood Pressure: 142/70 Pulse: 66 Respirations: 16 Pulse Ox (%): 95 - Physical Exam General: Alert, Oriented x3 HEENT: Atraumatic Neck: Supple Respiratory: Clear to auscultation bilaterally Cardiovascular: No edema, Normal S1 S2 Gastrointestinal: Normal bowel sounds Assessment And Plan - Current Problems (Diagnosis) (1) HTN (hypertension) Current Visit: Yes Status: Acute Plan: Continue current medications. add Imdur 30 mg daily (2) HLD (hyperlipidemia) Current Visit: Yes Status: Acute Plan: continue lipitor 40 mg daily lipid panel in 3 months. (3) NSTEMI (non-ST elevated myocardial infarction) Current Visit: No Status: Acute Plan: most likely type 2 OK vs vasospatic angina, as patient repeated coronary angiogram shows mild CAD. Imdur 30 mg daily and uptitrate as tolerated.
--- NOTE | 2024-04-02 14:35 | P.DS ---
Admission Date: 03/30/24 Discharge Date: 04/02/24 Disposition: ROUTINE DISCHARGE Discharge Condition: GOOD Reason for Admission: COPD exacerbation Consultations: Cardiology Dr. Leiva Brief History of Present Illness: 53-year-old female with history of CHF, COPD, diabetes mellitus type 2insulin- dependent, hypertension, hyperlipidemia, GERD, gastroparesis presents emergency department chief complaint of vomiting, chest pain, shortness of breath. Hospital Course: Patient was admitted to the hospital for COPD exacerbation with dyspnea and chest pain. She was treated with steroids, as needed nebulizer treatments and had improvement in her breathing difficulty. She was found to have an elevated troponin and for this reason cardiology was consulted, she had a coronary angio gram performed in late December of this year and was initially found to have CAD but suffered a vasospasm during the cath requiring it to be aborted, repeat heart catheterization was performed during that admission and did not show any CAD. Given the conflicting cath findings, elevated troponin and ongoing chest pain and another heart catheterization was performed which was negative. Cardiology believes vasospasms may be causing her to have the symptoms with shortness of breath and chest pain, recommend initiating Imdur 30 mg daily. At discharge patient should continue taking home medications as prescribed, of note it appears both metoprolol and carvedilol show of his home medications. You should not take both these medications together, it appears you were most recently on carvedilol and I recommend you continue carvedilol. New medications will include the following: Prednisone 10 mg by mouth twice daily for 4 days-for COPD exacerbation Protonix 40 mg daily-refill on home medication Vareniciline dose pack to assist with tobacco cessation Albuterol inhaler to use as needed for wheezing/shortness of breath Imdur 30 mg by mouth daily to help prevent vasospasm/treat angina Please follow-up with your primary care doctor 1 to 2 weeks Please also follow-up with cardiology 1 to 2 weeks Assessment: Acute respiratory distress secondary to COPD exacerbation Elevated troponin Intractable nausea/vomiting with history of gastroparesis/GERD/gastritis Diabetes mellitus type 2insulin-dependent Chronic diastolic congestive heart failure History of SVT Hypertension Hyperlipidemia Vital Signs/Physical Exam: Temp Pulse Resp BP Pulse Ox 97.6 F 66 16 142/70 H 95 04/02/24 12:23 04/02/24 12:23 04/02/24 12:23 04/02/24 12:23 04/02/24 12:23 General: Alert, In no apparent distress, Oriented x3 HEENT: Atraumatic, PERRLA Neck: Supple, JVD not distended Respiratory: Clear to auscultation bilaterally, Normal air movement Cardiovascular: Regular rate/rhythm, Normal S1 S2 Gastrointestinal: Normal bowel sounds, No tenderness Musculoskeletal: No tenderness Integumentary: No rashes Neurological: Normal speech, Normal tone, Normal affect Laboratory Data at Discharge: WBC 6.10 thou/uL (4.3-10.9) 04/02/24 10:44 Hgb 13.3 g/dL (12.0-15.0) 04/02/24 10:44 Hct 40.6 % (36.0-45.0) 04/02/24 10:44 Plt Count 292 thou/uL (152-406) 04/02/24 10:44 PT 13.1 SECONDS (9.5-12.5) H 03/30/24 05:00 INR 1.20 03/30/24 05:00 Sodium 141 mEq/L (136-145) 04/02/24 10:44 Potassium 3.5 mEq/L (3.5-5.1) 04/02/24 10:44 BUN 12 mg/dL (7-18) 04/02/24 10:44 Creatinine 0.66 mg/dL (0.55-1.02) 04/02/24 10:44 Glucose 112 mg/dL (74-106) H 04/02/24 10:44 Magnesium 2.0 mg/dL (1.6-2.4) 04/01/24 03:29 Total Bilirubin 0.7 mg/dL (0.2-1.0) 04/02/24 10:44 AST < 4 U/L (15-37) L 04/02/24 10:44 ALT 14 U/L (13-56) 04/02/24 10:44 Alkaline Phosphatase 89 U/L (45-117) 04/02/24 10:44 Lipase 64 U/L (13-75) 04/02/24 10:44 Home Medications: Amlodipine [Norvasc*] 5 mg PO DAILY 01/26/24 Atorvastatin Calcium [Lipitor] 40 mg PO BEDTIME 01/26/24 Insulin 70/30 NPH/Reg Human [Novolin 70/30*] 30 unit SQ BIDWM 01/26/24 Metformin HCl 1,000 mg PO BIDWM 01/26/24 Carvedilol [Coreg] 1 tab PO DAILY 03/30/24 Spironolactone 1 tab PO DAILY 03/30/24 Torsemide [Demadex*] 1 tab PO DAILY 03/30/24 Albuterol Sulfate [Albuterol Sulfate Hfa] 2 puff IH Q6H PRN #2 inh 04/02/24 Isosorbide Mononitrate [Isosorbide Mononitrate ER] 30 mg PO DAILY #30 tab 04/02/24 Pantoprazole [Protonix Tab] 40 mg PO DAILY #30 tab 04/02/24 Varenicline Tartrate 1 each PO DIRECTED #1 zeina 04/02/24 predniSONE [Deltasone*] 10 mg PO BID 4 Days #8 tab 04/02/24 New Medications: Albuterol Sulfate [Albuterol Sulfate Hfa] 2 puff IH Q6H PRN #2 inh PRN Reason: Wheezing predniSONE [Deltasone*] 10 mg PO BID 4 Days #8 tab Isosorbide Mononitrate [Isosorbide Mononitrate ER] 30 mg PO DAILY #30 tab Pantoprazole [Protonix Tab] 40 mg PO DAILY #30 tab Varenicline Tartrate 1 each PO DIRECTED #1 zeina Physician Discharge Instructions: Patient was admitted to the hospital for COPD exacerbation with dyspnea and chest pain. She was treated with steroids, as needed nebulizer treatments and had improvement in her breathing difficulty. She was found to have an elevated troponin and for this reason cardiology was consulted, she had a coronary angiogram performed in late December of this year and was initially found to have CAD but suffered a vasospasm during the cath requiring it to be aborted, repeat heart catheterization was performed during that admission and did not show any CAD. Given the conflicting cath findings, elevated troponin and ongoing chest pain and another heart catheterization was performed which was negative. Cardiology believes vasospasms may be causing her to have the symptoms with shortness of breath and chest pain, recommend initiating Imdur 30 mg daily. At discharge patient should continue taking home medications as prescribed, of note it appears both metoprolol and carvedilol show of his home medications. You should not take both these medications together, it appears you were most recently on carvedilol and I recommend you continue carvedilol. New medications will include the following: Prednisone 10 mg by mouth twice daily for 4 days-for COPD exacerbation Protonix 40 mg daily-refill on home medication Vareniciline dose pack to assist with tobacco cessation Albuterol inhaler to use as needed for wheezing/shortness of breath Imdur 30 mg by mouth daily to help prevent vasospasm/treat angina Please follow-up with your primary care doctor 1 to 2 weeks Please also follow-up with cardiology 1 to 2 weeks Diet: ADA Activity: Ad garrett Followup: NONE,NONE [UNKNOWN] - 1-2 Weeks Cristi Leiva MD [ACTIVE - CAN ADMIT] - 1-2 Weeks Time spent managing pt's care (in minutes): 35
--- NOTE | 2024-04-02 20:21 | OP ---
Date of Procedure: 04/02/2024 Surgeon: Joel Paez Procedures Performed: 1.Left heart catheterization. 2.Coronary angiogram. Indication For Procedure: Unstable angina. Complications: None. Estimated Blood Loss: Less than 50 cc. Sedation Time: 25 minutes with 1 of Versed and 25 of fentanyl. Access: Right common femoral artery, closed by Angio-Seal. Description Of Procedure: After risks, and benefits, and alternatives were explained to the patient, patient agreed to proceed with the procedure and signed informed consent. The patient was brought b [facility] to the lab pack chemist, prepped and draped, a time-out was performed and sedation was administered. Rig ht common femoral artery access was obtained using 6-Faroese ultrasound-guided micropuncture technique . Next, we advanced the JL4 catheter over a J-wire. Selective coronary angiogram of the left system was done. Then catheter was exchanged for a JR4 catheter over a J-wire, advanced to the LV cavity. LVEDP was obtained. Pullback did not show any gradient. Same catheter was used to obtain a right c oronary angiogram. At the end of procedure, catheter was removed and the sheath was removed. Angio- Seal applied to close the right common femoral artery access. The patient was moved back to recovery in stable condition. Findings: 1.Left main is normal. 2.LAD; ostial to proximal 30% disease, then mild LI. 3.Diagonal; large mild LI. 4.Left circ, mild LI. 5.RCA; tortuous, mild LI. 6.LVEDP 17 mmHg. Assessment And Plan: 1.Mild nonobstructive CAD. 2.Mildly elevated filling pressure. The plan will be to continue medical management. VINCE/JUANI Voice ID: [id number] Report ID: [id number]
[2024-04-03] MEDS ORDERED: ISOSORBIDE MONO SR 30 MG TAB PO SCH (09:00)
== END 2024-04-02 14:10 | disposition home or self-care (01) | DRG 190 ==
LOC: ER 04:17 → 2ND 06:30
PROVIDERS: ADMIT Internal Medicine; ATTEND Internal Medicine
PROC: 4A023N7 Measurement of Cardiac Sampling and Pressure, Left Heart, Percutaneous Approach (ICD-10-PCS; principal; 2024-04-02)
PROC: B2111ZZ Fluoroscopy of Multiple Coronary Arteries using Low Osmolar Contrast (ICD-10-PCS; 2024-04-02)
DX: J44.1 Chronic obstructive pulmonary disease with (acute) exacerbation (principal); I21.A1 Myocardial infarction type 2; J96.01 Acute respiratory failure with hypoxia; I50.32 Chronic diastolic (congestive) heart failure; I25.110 Atherosclerotic heart disease of native coronary artery with unstable angina pectoris; I11.0 Hypertensive heart disease with heart failure; E87.6 Hypokalemia; E78.5 Hyperlipidemia, unspecified; E11.9 Type 2 diabetes mellitus without complications; J40 Bronchitis, not specified as acute or chronic; K21.9 Gastro-esophageal reflux disease without esophagitis; J06.9 Acute upper respiratory infection, unspecified; F17.210 Nicotine dependence, cigarettes, uncomplicated; Z71.6 Tobacco abuse counseling; Z79.4 Long term (current) use of insulin; Z88.8 Allergy status to other drugs, medicaments and biological substances; Z79.52 Long term (current) use of systemic steroids; Z79.84 Long term (current) use of oral hypoglycemic drugs; Z79.02 Long term (current) use of antithrombotics/antiplatelets; Z90.49 Acquired absence of other specified parts of digestive tract; Z79.899 Other long term (current) drug therapy
CPT/HCPCS: 36415; 71045; 76937; 80048; 80053; 80076; 82947; 83605; 83690; 83735; 83880; 84484; 85025; 85027; 85610; 87040; 93005; 93458; 96365; 96375; 99152; 99153; 99285; A4216; C1760; C1893; C9113; G0269; J0461; J1644; J1650; J2001; J2250; J2405; J2550; J2765; J2920; J3010; J7030; J7040; Q9966